=== PATIENT | female | born 1965 | race Caucasian/White ===

== ENCOUNTER 2018-08-04 21:43 | Inpatient (IN) | payer OTHER ==
[~2018-08-04] VITALS: Ht 167.6 cm; Wt 191.8 kg
--- NOTE | ~2018-08-04 | HC ---
[facility] [place] [address] CONSULTATION Name: ASHLEY HERNANDEZ Room #: 222-P ADM IN M.R.#: [id number] Admission: 08/04/18 Attend Phys: Todd Grove MD Discharge: Date of : 65 Report #: [id number] THIS REPORT FOR: //name// CC: Todd Grove [facility] physician/PCP DATE OF SERVICE: 08/10/2018 HISTORY OF PRESENT ILLNESS: The patient is a 53-year-old white female, transferred from [place] with a lung mass. She was having problems with cough, dyspnea on exertion. Noted to have a left upper lobe mass and probable liver mets with elevated liver function tests. She has a history of morbid obesity. She underwent a liver biopsy earlier today. We are seeing her in Rehabilitation Medicine consultation. PAST MEDICAL HISTORY: Includes the morbid obesity, obstructive sleep apnea, diabetes mellitus type 2, COPD, chronic perianal fistula, hypothyroidism. ALLERGIES: CLAVULANIC, AMOXICILLIN, SULFAMETHOXAZOLE, BACTRIM WITH TRIMETHOPRIM. MEDICATIONS: Please see the full medication listing. This includes vitamins, herbals, and supplements. HABITS: Daily smoker, 1.5 packs per day for 40 years. No history of alcohol abuse. PAST SURGICAL HISTORY: Also includes a couple of strokes in 2005 and 2006, anal fissure repair. FAMILY HISTORY: Includes cancer involving the bone with her mother. REVIEW OF SYSTEMS: Complains of some overall swelling of her abdominal area. No current chest pain, shortness of breath, focal extremity pain complaints. PHYSICAL EXAMINATION: GENERAL: A 53-year-old morbidly obese, white female, in no obvious distress. She is 5 feet 6 inches, weight is 422 pounds. HEENT: Facies appeared symmetric. NEUROLOGIC: Functional range of motion of both upper extremities. Strength is grade 4- to 3+/5. DTRs are trace to 1. Lower extremities, no focal calf swelling. Strength is grade 3+ to 4-/5. I did not get her up as she is just back from the liver biopsy. ASSESSMENT: A 53-year-old white female with the following problem list: 1. Lung mass with possible metastasis to liver. She underwent a liver biopsy [address] [address] CONSULTATION Name: ASHLEY HERNANDEZ Room #: 222-P [facility] IN [facility].#: [id number] Admission: 08/04/18 Attend Phys: Todd Grove MD Discharge: Date of : 65 Report #: [id number] today. 2. Bloating/constipation. 3. Morbid obesity. 4. Diabetes mellitus type 2. 5. Obstructive sleep apnea. 6. Medical complex with generalized debilitation. 7. Chronic perianal fistula. PLAN: We will need to see how she does with her therapy reevaluations. She is just back from the liver biopsy. We will be glad to follow up with you as she further medically stabilizes. By: [id number] Elliot Fernandez MD /KWASI
[~2018-08-04 21:43] MED LIST: ACETAMINOPHEN325 M1; ASPIRIN325; LIPITOR20 MG; SYNTHROID200 MCG; VITAMIN D1000 UNI1
--- NOTE | 2018-08-05 00:03 | NUR ---
PT ARRIVED ONTO UNIT INTO ROOM 428 VIA EMS TRANSFERRED FROM [facility]. BED LASTER [employer] RUNNER NOTIFIED OF ARRIVAL. PT ORIENTATED TO ROOM, CALL LGIHT, FALL PRECAUTIONS, ROOM. PT ON 4L O2 VIA N/C AND SOA WITH ACTIVITY. PT A&Ox4, PLEASANT AND COOPERATIVE. WILL CONTINUE TO ASSESS AND MONITOR PT.
[2018-08-05 00:12] VITALS: BP 138/72
[2018-08-05] MEDS ORDERED: ALEVE220 MG PO (01:53)
[2018-08-05] MEDS ORDERED: ANORO ELLIPTA1 EACH INH (01:54)
[2018-08-05] MEDS ORDERED: ASPIRIN325 PO (01:54)
[2018-08-05] MEDS ORDERED: LIPITOR 20 MG T20 M1 PO (01:55)
[2018-08-05] MEDS ORDERED: COLACE100 MG PO (01:56)
[2018-08-05] MEDS ORDERED: BASAGLAR K100 UNIT/1 SUBQ (01:56)
[2018-08-05] MEDS ORDERED: NEXIUM40 MG PO (01:57)
[2018-08-05] MEDS ORDERED: FLONASE 0.05%50 MCG NASAL (01:58)
[2018-08-05] MEDS ORDERED: LEVOTHYROXINE200 MC1 PO (01:59)
[2018-08-05] MEDS ORDERED: CLARITIN10 MG PO (01:59)
[2018-08-05] MEDS ORDERED: METFORMIN HCL500 MG PO (02:02)
[2018-08-05] MEDS ORDERED: TOPROL XL25 MG PO (02:02)
[2018-08-05] MEDS ORDERED: MIRALAX17 GM PO (02:03)
[2018-08-05] MEDS ORDERED: SINGULAIR 10 MG10 M1 PO (02:04)
[2018-08-05] MEDS ORDERED: NOVOLOG100 UNIT/1 SUBQ (02:05)
[2018-08-05] MEDS ORDERED: POTASSIUM PO (02:06)
[2018-08-05] MEDS ORDERED: PRESERVISION A1 EAC2 PO (02:07)
[2018-08-05] MEDS ORDERED: TYLENOL EXTRA500 MG PO (02:09)
[2018-08-05] MEDS ORDERED: VENTOLIN HFA 1818 GM INH (02:10)
[2018-08-05] MEDS ORDERED: VITAMINC500 PO (02:10)
[2018-08-05 03:02] VITALS: BP 117/48
--- NOTE | 2018-08-05 03:30 | NUR ---
PT CURRENTLY RESTING IN BED, CPAP ON WITH 4L O2, EYES CLOSED, CALL LIGHT WITHIN REACH. REPORT GIVEN AND CARE TRANSFERRED TO MICHELE MYERS ON UNIT. PT WILL CONTINUE TO BE MONITORED.
[2018-08-05 05:06] LABS: HEMATOCRIT 39.4 % (37.0-47.0); HEMOGLOBIN 12.9 gm/dL (12.0-15.0); MCH 29.4 pg (26.0-34.0); MCHC 32.8 g/dL (28.0-37.0); MCV 89.5 fL (80.0-100.0); RBC 4.41 mil/uL (4.20-5.00); WBC 12.9 thou/uL (4.0-11.0)
[2018-08-05 05:20] LABS: ALBUMIN 2.6 g/dL (3.4-5.0); CALCIUM 8.7 mg/dL (8.5-10.1); CREATININE 0.7 mg/dL (0.6-1.0); MAGNESIUM 2.3 mg/dL (1.8-2.4); TOTAL BILIRUBIN 2.9 mg/dL (<0.1-1.0)
[2018-08-05 05:31] LABS: POTASSIUM 4.8 mmol/L (3.5-5.1)
[2018-08-05 07:40] VITALS: BP 114/53
[2018-08-05] MEDS ORDERED: ZPAK PO (09:21)
[2018-08-05] MEDS ORDERED: TRIAMCINOLONE A80 G2 TOP (09:22)
[2018-08-05] MEDS ORDERED: ZANTAC 150MG T150 MG PO (09:22)
--- NOTE | 2018-08-05 12:28 | NUR ---
ASSESSMENT-PT LIVES IN A MOBILE HOME WITH HER SISTER. PT USES A C-PAP AT HOME. PT SAYS SHE WALKS ON HER OWN AND DOES HER OWN ADLS. PT HAS HER MOM AND SISTER FOR SUPPORT. PT VOICES NO DC NEEDS AT THIS TIME. FOLLOWING TO ASSSIST WITH DC PLANNING.
--- NOTE | 2018-08-05 13:45 | NUR ---
Assess due to pt with high BMI 69.2=extreme class III obesity. Admit with noted lung mass, possible liver mets. Hx tobacco use, dm, cva, SRAVANI. BG 167 and A1C pending. Pt currently npo for procedure. No dietary questions. Recommend resume carb controlled diet when medically appropriate. Low nutrition risk
[2018-08-05 20:27] VITALS: BP 147/82
--- NOTE | 2018-08-05 20:50 | NUR ---
ASSUMED PT CARE AT 0700H. PT HAS NO S/S OF DISTRESS. PT A&O X4. PT ON NASAL 4L. PT TOLERATED MED. PT HAS A FIRM ABD. PT CONCERN OF BEING CONSTIPATED. PT STATES HAVING A IRRITABLE BOWEL WITH PEBBLE STOOLS. PT'S FAMILY (WALTER) AT BEDSIDE STATES PT HAS BILATERAL FISTULA AND HEMORRIDS THAT CAUSE BLOODY STOOLS. PT CURRENTLY IN BED AND CALL LIGHT WITHIN REACH. PT CONTINUES BEING MONITORED FOR SAFETY.
[2018-08-05 20:52] LABS: HCO3 27.4 mmol/L (22.0-26.0); PCO2 41.3 mmHg (35.0-45.0); sO2 96.7 % (92.0-98.0)
[2018-08-06 00:11] LABS: GLYCOHEMOGLOBIN (HGB A1C) 6.9 % (4.8-5.6)
[2018-08-06 00:22] LABS: HEMATOCRIT 40.7 % (37.0-47.0); HEMOGLOBIN 13.6 gm/dL (12.0-15.0); MCH 29.7 pg (26.0-34.0); MCHC 33.4 g/dL (28.0-37.0); MCV 88.9 fL (80.0-100.0); PLATELET COUNT 266 thou/uL (150-400); RBC 4.58 mil/uL (4.20-5.00); RDW 15.5 % (10.5-14.5); WBC 15.9 thou/uL (4.0-11.0)
[2018-08-06 00:47] LABS: ALBUMIN 2.8 g/dL (3.4-5.0); CALCIUM 8.9 mg/dL (8.5-10.1); CREATININE 0.8 mg/dL (0.6-1.0); POTASSIUM 4.5 mmol/L (3.5-5.1); TOTAL BILIRUBIN 2.4 mg/dL (<0.1-1.0); TOTAL PROTEIN 6.5 g/dL (6.4-8.2)
[2018-08-06 01:13] LABS: ABSOLUTE NEUTROPHILS 12.6 thou/uL (1.4-8.2); ATYPICAL LYMPHS 2 %; METAMYELOCYTES 1 %
[2018-08-06 01:14] LABS: LARGE PLATELETS RARE
[2018-08-06 05:03] VITALS: BP 128/60
--- NOTE | 2018-08-06 07:45 | NUR ---
ASSUMED PT CARE 1899. PT ALERT AND ORIENTED. IV DRESSINGS D/I. NO SIGNS OF INFILTRATION. PT COMPLAINS OF ABDOMINAL DISCOMFORT, REPORTS LIQUID BLOODY STOOLS. OXYGEN 4L VIA NC. VSS. APPNEA MONITIOR PRESENT. PT ANXIOUS CONCERNING ISSUES WITH BLOODY STOOLS. PT ON BIPAP AT NIGHT. PT SLEPT WELL THROUGH THE EVENING.
[2018-08-06 16:00] VITALS: BP 146/76
--- NOTE | 2018-08-07 03:10 | NUR ---
PATIENT ALERT AND ORIENTED X4. GETS UP TO BATHROOM BY SELF, NEEDS HELP WITH THE WIPING. ACCUCHECK WAS 224, RECIEVED 4UNITS INSULIN. LUIS LOWER EXT EDEMA. ALL EXT HAS A RASH. BY THE TIME THE MEDICINE FOR THE RASH ARRIVED THE PATIENT DID NOT WANT THE MED ON. BIBAP ON AT HS. SLEPT MOST OF NIGHT.
[2018-08-07 06:10] LABS: HEMOGLOBIN 12.9 gm/dL (12.0-15.0); MCH 28.9 pg (26.0-34.0); MCHC 32.4 g/dL (28.0-37.0); MCV 89.1 fL (80.0-100.0); PLATELET COUNT 233 thou/uL (150-400); RBC 4.48 mil/uL (4.20-5.00)
[2018-08-07 06:23] LABS: ALBUMIN 2.6 g/dL (3.4-5.0); CALCIUM 8.8 mg/dL (8.5-10.1); CREATININE 0.8 mg/dL (0.6-1.0); MAGNESIUM 2.7 mg/dL (1.8-2.4); POTASSIUM 4.6 mmol/L (3.5-5.1); TOTAL BILIRUBIN 2.3 mg/dL (<0.1-1.0); TOTAL PROTEIN 6.1 g/dL (6.4-8.2)
[2018-08-07 08:44] LABS: ABSOLUTE NEUTROPHILS 11.2 thou/uL (1.4-8.2); PLATELET ESTIMATE NORMAL
[2018-08-07 08:45] VITALS: BP 154/82
--- NOTE | 2018-08-07 09:46 | NUR ---
ASSUMED PT CARE AT 0700. PT SITTING ON SIDE OF BED IN NO APPARENT DISTRESS. AWAKE,ALERT/ORIENTED X4. PT REPORTS PAIN TO ABDOMEN AND BACK RATED 7/10. TYLENOL GIVEN. ASSESSMENT IS CHARTED AND VITAL SIGNS STABLE. PT WOULD LIKE SOMETHING FOR HER RASH THAT IS MORE OF A CREAM/LOTION. WILL REQUEST SOMETHING DIFFERENT. OTHERWISE NO NEW CONCERNS AT THIS TIME. WILL CONTINUE WITH CURRENT CARE.
--- NOTE | 2018-08-07 15:05 | NUR ---
PT HAD LARGE BLOODY STOOL THIS AFTERNOON. PT REPORTS THIS HAS BEEN GOING ON SINCE EARLY JUNE WHEN SHE FELL ON STAIRS AT HOME. PHYSICIAN NOTIFIED.
[2018-08-07 15:23] LABS: HEMATOCRIT 40.2 % (37.0-47.0); HEMOGLOBIN 13.2 gm/dL (12.0-15.0); MCH 29.3 pg (26.0-34.0); MCHC 32.9 g/dL (28.0-37.0); RBC 4.52 mil/uL (4.20-5.00); RDW 15.5 % (10.5-14.5); WBC 17.2 thou/uL (4.0-11.0)
--- NOTE | 2018-08-07 16:26 | HC ---
[facility] [place] [address] CONSULTATION Name: ASHLEY HERNANDEZ Room #: 221-P ADM IN M.R.#: [id number] Admission: 08/04/18 Attend Phys: Todd Grove MD Discharge: Date of : 65 Report #: [id number] THIS REPORT FOR: //name// CC: Todd Grove [facility] physician/PCP DATE OF SERVICE: 08/05/2018 TYPE OF REPORT: Pulmonary consultation. REFERRING PHYSICIAN: Todd Grove M.D. REASON FOR REFERRAL: Lung mass. HISTORY OF PRESENT ILLNESS: The patient is a 53-year-old white female who was transferred from [facility] due to an abnormal chest CT. A Pulmonary consultation was requested. The patient complaints of abdominal bloating for the past 2-3 weeks. With worsening symptoms along with dyspnea, the patient presented to the Emergency Room. A CT chest angiogram was performed at [facility]. The CT chest was said to have shown a left upper lobe lung mass. Unfortunately, I do not have the CT for review. The patient is a lifetime smoker. She continues to smoke half a pack a day. Otherwise, denies any recent nausea, vomiting or diarrhea. She denies any recent weight loss. Preliminary report from the CT chest shows 8.2 x 6 x 4.5 cm irregular left upper lobe lung mass extending into the hilar region with mediastinal and hilar adenopathy. CT abdomen and pelvis shows hepatomegaly with a metastatic disease. Retroperitoneal adenopathy was also noted consistent with metastatic disease. Vwtff-bj-[id number] pleural effusion is also seen. 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 PAST SURGICAL HISTORY: Notable for appendectomy, cholecystectomy and anal fissure repair. ALLERGIES: To AUGMENTIN, which causes hives and BACTRIM, causes yeast infection. She is allergic to both SULFAMETHOXAZOLE along with TRIMETHOPRIM. [facility] [address] [place] [address] CONSULTATION Name: MARYASHLEY Room #: 221-P [facility] IN ..#: [id number] Admission: 08/04/18 Attend Phys: Todd Grove MD Discharge: Date of : 65 Report #: [id number] HOME MEDICATIONS: Include Aleve, Lipitor, Colace, Nexium, levothyroxine, MiraLax, insulin supplements, Tylenol, azithromycin, Zantac, Anoro Ellipta, aspirin, insulin supplements, Flonase, Claritin, Glucophage, Toprol, Singulair, Ventolin HFA and vitamin C supplements. FAMILY HISTORY: Noncontributory. SOCIAL HISTORY: She continues to smoke about 1-1/2 packs a day. She denies any alcohol use. She has smoked for more than 40 years. REVIEW OF SYSTEMS: As mentioned above, otherwise 10-point system review negative. PHYSICAL EXAMINATION: GENERAL: She is awake, alert, in mild distress due to dyspnea along with abdominal discomfort. VITAL SIGNS: Temperature is 97.4 degrees Fahrenheit, pulse is 85, respiratory rate is 20, blood pressure 138/72 mmHg and saturation 92%. HEENT: Normocephalic and atraumatic. NECK: Supple without any lymphadenopathy or thyromegaly. CHEST: Breath sounds are distant. Mild expiratory wheezes. CARDIOVASCULAR: Heart sounds are distant. No murmurs or gallop. Pulses are 2+/4+ bilaterally. BREASTS: Exam is deferred. ABDOMEN: Obese, soft and mildly tender in the lower abdomen area without obvious mass or rebound tenderness. GENITOURINARY: Deferred. RECTAL: Deferred. EXTREMITIES: No cyanosis or clubbing, 1-2+ bilateral edema is noted. NEUROLOGICAL: She is awake and alert. RADIOLOGICAL DATA: Official report of the CT chest is pending. LABORATORY DATA: Electrolytes are normal. Creatinine 0.8. Liver enzymes are moderately elevated with SGOT 247, SGPT 139 and alkaline phosphatase is 670. WBC 12,900; hemoglobin 12.9 and platelets are normal. Albumin 2.6. Arterial blood gas revealed pH 7.44, pCO2 of 41 and pO2 of 85 on 4 liters of O2. IMPRESSION: 1. History of left upper lobe lung mass in this 53-year-old white female. Unfortunately, I do not have a CT chest for review. A CT abdomen also suggests metastasis to the liver. We will await the copy of the chest CT report along with chest CT for review for further recommendation and evaluation. 2. Abdominal discomfort. The patient complains of bloating. May be related to obstipation. We will await further evaluation. 3. History of chronic obstructive pulmonary disease, ongoing tobacco use. [facility] [address] [place] [address] CONSULTATION Name: ASHLEY HERNANDEZ Room #: 221-P [facility] IN [facility].#: [id number] Admission: 08/04/18 Attend Phys: Todd Grove MD Discharge: Date of : 65 Report #: [id number] Severity unknown. Continue bronchodilators and inhaled corticosteroids. 4. Obstructive sleep apnea, on continuous positive airway pressure. 5. Morbid obesity. 6. Elevated liver enzymes, etiology is unclear. Not sure if it is entirely related to metastatic liver disease. We will need to consider other possible causes such as alcohol use, hepatitis, etc. 7. Diabetes mellitus type 2. 8. Hypertension. 9. Hypothyroidism. 10. Elevated lipase. RECOMMENDATIONS: We will await CT chest result along with a CT chest for review. Continue bronchodilators and steroids for COPD. Continue CPAP for sleep apnea. We will also recommend a GI workup regarding abdominal complaints. Once GI status is stable, we will proceed with a pulmonary workup. If the patient is stable, pulmonary workup can be accomplished as an outpatient. DVT and GI prophylaxis is recommended. Thank you for this consultation. <ELECTRONICALLY SIGNED> By: Judd Liang MD 08/07/18 1626 [id number] Judd Liang MD /nt
--- NOTE | 2018-08-07 17:06 | NUR ---
PT DECLINED TO BE DISMISSED TODAY. PT CONCERNED THE EDEMA IN HER LEGS AND ABDOMEN HAVE NOT BEEN ADDRESSED. PT REPORTS PAIN AND MUCH DISCOMFORT IN HER ABDOMEN FROM THE SWELLING MAKING DAILY ACTIVITIES DIFFICULT. TYLENOL GIVEN FOR PAIN. OTHERWISE NO NEW CONCERNS. PT WAS SEEN BY GI FOR BLOOD IN STOOLS. NO NEW ORDERS WERE ENTERED. WILL CONTINUE TO MONITOR.
[2018-08-07 19:47] VITALS: BP 133/67
--- NOTE | 2018-08-08 02:43 | NUR ---
ASSUMED CARE OF PATIENT AT 1899. VSS. ASSESSMENT COMPLETED AT 2119 AND IS DOCUMENTED. PT C/O ABD DISCOMFORT/INDIGESTION. ORDER RECEIVED FROM MICHAEL JONES FOR TUMS 500MG TID PRN AT 2227. TUMS GIVEN WITH DESIRED EFFECT ACHIEVED. PT UP TO BSC SEVERAL TIMES THROUGHOUT THE NIGHT WITH BLOODY STOOLS EACH TIME. TOPICAL NYSTATIN AND INTERDRY APPLIED TO BILAT ABD FOLDS. SOA WITH EXERTION NOTED. +4 PITTING EDEMA BLE. RIGHT AC PIV PATENT, BUT PUMP ALARMING HIGH PRESSURE REGULARLY. LEFT FA PIV PLACED AND IV ABT INFUSED WITHOUT COMPLICATION. PT CURRENTLY ON CPAP WITH O2 SAT @ 98%. PT CURRENTLY SLEEPING SOUNDLY IN BED IN NO ACUTE DISTRESS. ABLE TO CALL OUT APPROPRIATELY. CALL LIGHT WITHIN REACH. BED LOCKED AND IN LOWEST POSITION. WCTM.
[2018-08-08 06:46] LABS: HEMATOCRIT 39.3 % (37.0-47.0); HEMOGLOBIN 12.8 gm/dL (12.0-15.0); MCH 28.9 pg (26.0-34.0); MCHC 32.6 g/dL (28.0-37.0); MCV 88.6 fL (80.0-100.0); RBC 4.44 mil/uL (4.20-5.00); WBC 14.1 thou/uL (4.0-11.0)
[2018-08-08 06:57] LABS: CALCIUM 8.8 mg/dL (8.5-10.1); CREATININE 0.8 mg/dL (0.6-1.0); POTASSIUM 4.5 mmol/L (3.5-5.1)
[2018-08-08 08:00] VITALS: BP 138/87
--- NOTE | 2018-08-08 17:24 | NUR ---
ASSUMED CARE OF PATIENT AT 0715, PATIENT ALERT AND ORIENTED X 4. PATIENT UP AD JOSE F TO BATHROOM, NEEDS ASSISTANCE TO CLEAN AFTER USING THE BATHROOM. PATIENT C/O PAIN WITH ABDOMEN AREA AND HEADACHE THIS AM. PATIENT GIVEN TYLENOL 650 MG PER PATIENT REQUEST, PARTIAL RELIEF REPORTED. PATIENT HAS RASH OVER BODY, TRIAMCINOLONE CREAM APPLIED TO AFFECTED AREAS. PATIENT CONTINUES TO HAVE REDNESS UNDER ABDOMEN FOLDS, NYSTATIN APPLIED AFTER WASHING AREA AND DRYING THE AREA. NO BLOOD NOTED IN STOOLS THIS SHIFT. PATIENT HAS LEFT FOREARM IV IN PLACE, FLUSHED WITH NS AND REMAINS PATENT, RECEIVED 1 IV ANTIBIOTIC THIS SHIFT. WILL CONTINUE TO MONITOR.
[2018-08-08 19:26] VITALS: BP 164/73
--- NOTE | 2018-08-09 03:20 | NUR ---
ASSUMED CARE OF PATIENT AT 1900. VSS. ASSESSMENT COMPLETED AT 2016 AND IS DOCUMENTED. PT CONTINUES TO CRY OUT PAIN FROM ABD. PRN TYLENOL GIVEN WITH SOME EFFECT. PRN TUMS GIVEN FOR C/O INDEGESTION WITH DESIRED EFFECT ACHIEVED. PT STILL HAS +4 PITTING EDEMA IN BLE. PT BROUGHT COMPRESSION STOCKINGS FROM HOME AND THOSE WERE APPLIED. BRIGHT RED BLOOD NOTED WITH BM X2. LEFT FA PIV PATENT AND SALINE LOCKED. IV ABT INFUSED WITHOUT COMPLICATION. PT VOICED CONCERN THAT SHE WAS RETAINING WATER WEIGHT AND THAT SHE WAS NOT GETTING ENOUGH LASIX TO GET RID OF THE EXTRA. THIS NURSE ASSURED PT THAT HER CONCERNS WOULD BE PASSED ONTO HER DOCTOR. PT STILL SOA WITH EXERTION. WEARS CPAP AT NIGHT. PT ABLE TO CALL OUT APPROPRIATELY. PT CURRENTLY SLEEPING IN BED IN NO ACUTE DISTRESS. CALL LIGHT WITHIN REACH. BED LOCKED AND IN LOWEST POSITION. WCTM.
[2018-08-09 07:44] LABS: HEMATOCRIT 42.1 % (37.0-47.0); HEMOGLOBIN 13.6 gm/dL (12.0-15.0); MCH 28.8 pg (26.0-34.0); MCHC 32.3 g/dL (28.0-37.0); MCV 89.2 fL (80.0-100.0); RBC 4.72 mil/uL (4.20-5.00); RDW 16.2 % (10.5-14.5); WBC 15.7 thou/uL (4.0-11.0)
[2018-08-09 08:06] VITALS: BP 139/69
[2018-08-09 09:11] LABS: ALBUMIN 2.8 g/dL (3.4-5.0); CALCIUM 9.1 mg/dL (8.5-10.1); CREATININE 0.7 mg/dL (0.6-1.0); TOTAL BILIRUBIN 3.8 mg/dL (<0.1-1.0); TOTAL PROTEIN 6.5 g/dL (6.4-8.2)
[2018-08-09 09:20] LABS: POTASSIUM 5.1 mmol/L (3.5-5.1)
--- NOTE | 2018-08-09 11:10 | NUR ---
ASSUMED CARE OF PATIENT THIS MORNING. PATIENT IS ALERT AND ORIENTED X 4. SHE IS UP AD JOSE F. PATIENT RECEIVED Q4H BREATHING TREATMENTS. SHE WEARS A CPAP AT NIGHT. SHE IS AN ACCUCHECK AC/HS. HER IV IS IN HER L. FOREARM. SHE HAS ABDOMINAL SWELLING. BILATERAL LOWER EXTREMITY EDEMA. SHE HAS ERYTHEMA SPOTS THROUGHOUT HER BODY. PATIENT HAS AN ANAL FISSURE THAT CAUSES BLEEDING AT TIMES. SHE WAS ASSESSED THIS MORNING, NO ABNORMAL FINDINGS EXCEPT THE EDEMA WHICH IS GENERALIZED. LAST BOWEL MOVEMENT WAS THE MORNING, VOIDS PER BEDSIDE COMMODE. SHE IS CURRENTLY SITTING ON THE SIDE OF BED. CALL LIGHT WITHIN REACH, PATIENT CALLS OUT APPROPRIATELY.
[2018-08-09 19:33] VITALS: BP 152/89
[2018-08-10] VITALS (8 sets, daily range): BP systolic 122–159; BP diastolic 62–88
--- NOTE | 2018-08-10 02:35 | NUR ---
ASSUMED CARE OF PATIENT AT 1900. VSS. ASSESSMENT COMPLETED AT 2030 AND IS DOCUMENTED. UNABLE TO FLUSH LEFT FA PIV AND WAS D/C-ED. PPAP COORDINATOR INSERTED A PIV INTO RIGHT CHEST. DURING INFUSION OF IV ABT, PT C/O BURNING, AND AREA BECAME SWOLLEN AND COOL TO TOUCH. INFUSION STOPPED AND IV D/C. CECILY, MEDIA OPERATOR NOTIFIED. ORDER FOR IV THERAPY OBTAINED. ALSO ADVISED THAT PT SHOULD BE NPO AFTER MIDNIGHT D/T IR TRANSJUGULAR LIVER BIOPSY SCHEDULED FOR 08/10. CONSENT HAS NOT BEEN SIGNED AT THIS TIME. WILL NOTIFY ONCOMING NURSE. PT NPO 08/09 @ 9140. PT CONTINUES TO NEED ASSISTANCE WIPING AFTER TOILETING. BRIGHT RED BLOOD NOTED EACH TIME. PT CURRENTLY SLEEPING SOUNDLY IN BED WITH CPAP AND CONTINUOUS PULSE OX. NO ACUTE DISTRESS NOTED OR REPORTED. ABLE TO CALL OUT APPROPRIATELY. CALL LIGHT WITHIN REACH. BED LOCKED AND IN LOWEST POSITION. WCTM.
[2018-08-10 06:31] LABS: HEMATOCRIT 42.9 % (37.0-47.0); MCH 29.2 pg (26.0-34.0); MCHC 32.6 g/dL (28.0-37.0); MCV 89.7 fL (80.0-100.0); RBC 4.78 mil/uL (4.20-5.00); RDW 15.9 % (10.5-14.5); WBC 18.1 thou/uL (4.0-11.0)
[2018-08-10 06:44] LABS: INR 1.5; PROTIME 16.1 Seconds (9.3-11.4)
[2018-08-10 06:46] LABS: ALBUMIN 2.8 g/dL (3.4-5.0); CALCIUM 9.3 mg/dL (8.5-10.1); CREATININE 0.9 mg/dL (0.6-1.0); POTASSIUM 4.9 mmol/L (3.5-5.1); TOTAL PROTEIN 6.9 g/dL (6.4-8.2)
--- NOTE | 2018-08-10 09:55 | NUR ---
SW reviewed chart and spoke with nursing. Pt transferred to [facility] and is progressing towards goals for discharge. Pt to have liver bx today. Plan is for pt to d/c home when medically stable. SW is following to assist as needed with discharge planning.
--- NOTE | 2018-08-10 12:15 | NUR ---
ASSUMED CARE OF PATIENT THIS MORNING. PATIENT IS ALERT AND ORIENTED X4. SHE IS UP AD JOSE F. PATIENT COMPLAINS OF STOMACH DISCOMFORT, "FEELS LIKE GAS". SHE WAS ASSESSED THIS MORNING, LUNG SOUNDS WERE CLEAR AND SLIGHTLY DIMINISHED. ABDOMEN IS DISTENDED AND FIRM. GENERALIZED EDEMA. BILATERAL LEG EDEMA NON WEEPING. PATIENT GOING TO IR THIS AFTERNOON FOR LIVER BIOPSY. NPO SINCE MIDNIGHT. SLIGHT BLEEDING FROM ANAL AREA WHEN WIPING OR WITH BOWEL MOVEMENTS AT TIMES. ALL MORNING MEDICATIONS WERE HELD UNTIL AFTER PROCEDURE EXPECT BLOOD PRESSURE MEDICATION.
--- NOTE | 2018-08-10 12:39 | NUR ---
PATIENT IS CURRENTLY OFF THE UNIT FOR LIVER BIOPSY. TRANSPORT CAME TO GET PATIENT VIA CART. NO IV POLE NEEDED. CONSENT SIGNED AND SENT WITH THE PATIENT.
--- NOTE | 2018-08-10 16:12 | NUR ---
I AGREE WITH NURSING ASSESSMENT DONE BY QUINTON/MC.
--- NOTE | 2018-08-11 04:09 | NUR ---
PATIENT ALERT AND ORIENTED X4. C/O PAIN, MED GIVEN. ACCUCHECK WAS 151, 3 UNITS LISPRO INSULIN GIVEN. LIVER BX DONE YESTERDAY. PATIENT UP AD JOSE F. PATIENT WEARS C-PAP AT HS. SLEPT OFF AND ON DURING NIGHT.
[2018-08-11 08:10] VITALS: BP 142/75
--- NOTE | 2018-08-11 08:10 | NUR ---
ASSUMED PT CARE AT 0700. ASSESSMENT COMPLETE AT 0810 AND IS CHARTED. VITAL SIGNS STABLE. PT SITTING UP ON EDGE OF BED. AWAKE,ALERT/ORIENTED X4. REPORTS ABDOMINAL PAIN RATED 8/10 AND ALSO REPORTS OFF AND ON BM'S WITH BLOOD IN THEM. . 2+ PITTING EDEMA TO LOWER EXTREMITIES. ABDOMEN REMAINS FIRMS AND DISTENDED. PAIN MEDICATION GIVEN FOR ABD PAIN. WILL CONTINUE WITH CURRENT CARE ORDERED.
--- NOTE | 2018-08-11 13:27 | NUR ---
SW reviewed chart and spoke with nursing and attending physician. Pt had liver bx yesterday-results pending. PT/OT to re-evaluate pt for recommendation for discharge. 5N consult ordered. Pt would benefit from post-acute stay prior to returning home. Awaiting input from 5N at this time. EDGAR is following to assist as needed with discharge planning.
--- NOTE | 2018-08-11 13:41 | NUR ---
PT DOING FAIR THIS SHIFT. TOLERATING BEING UP IN ROOM AD JOSE F, BUT DID NOT TOLERATE PHYSICAL THERAPY WELL. BECAME VERY SHORT OF BREATH. PHYSICAL THERAPIST REPORTS SAT DID NOT DROP DURING THIS TIME. PT HAS BEEN RESTING IN CHAIR SINCE THEN. CONTINUING TO GIVE OXYCODONE FOR ABD PAIN. OT IN ROOM AT THIS TIME. WILL CONTINUE TO MONITOR.
[2018-08-11 20:57] VITALS: BP 147/78
--- NOTE | 2018-08-12 04:42 | NUR ---
PATIENT ALERT AND ORIENTED X4. UP TO BATHROOM BYSELF BUT NEEDS HELP WIPING. THERE IS BLOOD IN THE STOOL AND PAPER. C/O PAIN X1, MED GIVEN. BLOOD SUGAR WAS 186, 3 UNITS LISPRO INSULIN GIVEN. CREAM APPLIED TO PATIENT'S EXT. SLEPT MOST OF NIGHT.
[2018-08-12 07:49] VITALS: BP 157/81
--- NOTE | 2018-08-12 10:24 | NUR ---
Followup: suspected lung cancer with possible mets, pending liver bx results. Extreme class III obesity, BMI 68. On carb controlled diet, fair to good intake-early satiety with abdominal distention and firmness. Trying to order most meals from hospital menu. Explained diet order/restrictions. Low nutrition risk
--- NOTE | 2018-08-12 11:12 | HC ---
[facility] [place] [address] CONSULTATION Name: ASHLEY HERNANDEZ Room #: 222-P ADM IN M.R.#: [id number] Admission: 08/04/18 Attend Phys: Todd Grove MD Discharge: Date of : 65 Report #: [id number] THIS REPORT FOR: //name// CC: Todd Collazo [facility] physician/PCP Judd Liang MD DATE OF SERVICE: 08/07/2018 HISTORY OF PRESENT ILLNESS: The patient is a 53-year-old female who was evaluated at [facility] for abdominal pain, constipation as well as dyspnea on exertion. A CT scan of the abdomen and pelvis as well as a chest were performed on 08/04/2018. CT of the chest showed an 8.2 x 6.0 x 4.5 large irregular mass centered in the left upper lobe extending in the hilar region with mediastinal and hilar adenopathy. Findings are most consistent with primary bronchogenic carcinoma with metastatic mediastinal adenopathy. Consolidating infiltrate and reactive adenopathy is considered unlikely. The patient has a long history of smoking. No previous history of cancer. CT of the abdomen, exam is markedly limited due to the patient's large body habitus resulting in beam hardening effect. Hepatomegaly with multiple ill-defined low density foci within the liver consistent with hepatic metastatic disease, retroperitoneal adenopathy consistent with metastatic adenopathy, pyigq-bn-ebyfsofa amount of ascites, limited visualization of the pancreas secondary to beam hardening artifact. Dr. Liang is following since transfer as well as Dr. Ernandez, Dr. Collazo. Plan is for biopsy in the near future for further evaluation of possible metastatic disease. Reason for GI consultation at this time is bright red blood per rectum. The patient states she had a fall at home a couple of weeks ago and after that, began having some bleeding with bowel movements, not with every bowel movement. Currently is happening every few days. She does complain of some pain around the sacrum. She states that she had seen a chiropractor after the fall. She reportedly has a history of anal fissure. No previous history of colonoscopy. No family history of colon cancer. She said she has had several large bowel movements, but denies any significant history of constipation. She denies any diarrhea. She is currently given ointment for her skin and at one point was using a suppository, but denies any significant benefit. She does complain of abdominal bloating and pain in general. She is short of breath with minimal exertion. Also noted was an elevated lipase. The patient denies any history of pancreatitis. She has had a previous cholecystectomy years ago. She denies any significant history of alcohol use. Currently is denying any chest pain. No fevers or chills. The patient here has had an ultrasound of the abdomen, which shows hepatomegaly and probable multiple hepatic masses measuring up to 9 cm. Mild splenomegaly. The pancreas and aorta were not well visualized. Trace ascites was noted. Chest x-ray: Atelectasis and pneumonia on the left upper [facility] [address] [place] [address] CONSULTATION Name: ASHLEY HERNANDEZ Room #: 222-P [facility] IN ..#: [id number] Admission: 08/04/18 Attend Phys: Todd Grove MD Discharge: Date of : 65 Report #: [id number] lung. No evidence of gross congestive failure. PAST MEDICAL HISTORY: Morbid obesity. Recent CT showing evidence of likely metastatic disease as described above. No biopsies have been obtained as yet. History of hypertension, diabetes, hypothyroidism, cerebral vasculitis, retinal problems, previous cholecystectomy, appendectomy, apparently history of CVAs in 2005 and 2006, history of anal fissure. MEDICATIONS ON ADMISSION: Aleve, Lipitor, Colace, Nexium, MiraLax, NovoLog, Tylenol p.r.n., Z-MARCO, Aristocort, Zantac, aspirin, Flonase, Claritin, Glucophage, Toprol, Singulair, Ventolin and vitamin C. REVIEW OF SYSTEMS: As per HPI. FAMILY HISTORY: Negative for colon cancer or inflammatory bowel disease. SOCIAL HISTORY: A long history of smoking 1-1/2 packs per day. She denies any significant alcohol use. ALLERGIES: AUGMENTIN AND BACTRIM. PHYSICAL EXAMINATION: VITAL SIGNS: Temperature is 97.6, pulse 85, blood pressure 154/82, respiratory rate is 20. GENERAL: She is alert and oriented x 3. She does appear to have some respiratory distress and difficulty with movement. HEENT: Sclerae nonicteric. Oropharynx is clear. NECK: Supple. CARDIOVASCULAR: Regular rate. CHEST: With decreased breath sounds bilaterally. ABDOMEN: Morbidly obese, soft, mildly distended, mildly tender diffusely. Rectal exam was performed. I did not see an obvious anal fissure. The patient is tender in the perirectal area. There is no evidence of fluctuance or abscess type of formation. She was again tender on exam and there is some skin erythema. No obvious fissure or hemorrhoid was seen. EXTREMITIES: Trace edema in the lower extremities bilaterally. LABORATORY DATA: Sodium 140, potassium 4.6, chloride 102, bicarbonate 29, BUN 18, creatinine 0.8, glucose 152, AST is 229, lipase 1436, total bilirubin 2.3, magnesium 2.7, alkaline phosphatase 706, ALT 137, total protein 6.1, albumin 2.6, lactic acid level yesterday is 2.1. WBC is 17.2, hemoglobin 13.2, platelet count is 277. ASSESSMENT AND PLAN: 1. Intermittent bright red blood per rectum. Currently, hemoglobin is normal at 13. The patient has never had a colonoscopy. On digital exam today, she is [facility] [address] [place] [address] CONSULTATION Name: ASHLEY HERNANDEZ Room #: 222-P ADM IN [facility].#: [id number] Admission: 08/04/18 Attend Phys: Todd Grove MD Discharge: Date of : 65 Report #: [id number] tender in the perianal region, but no obvious abscess seen as well as fissure. I suspect she may have a fissure or hemorrhoid. However, the skin is mildly irritated in the perirectal area. The patient is high risk at this time because of multiple medical problems including lung masses and morbid obesity for colonoscopy and sedation. Therefore, would recommend treating with Analpram t.i.d. and continue to monitor the patient's bleeding as well as hemoglobin. 2. Elevated liver function tests, suspect this is secondary to multiple masses within the liver from metastatic disease. Plan for biopsy in the near future. 3. Elevated lipase, difficult to determine if this reflects possible pancreatitis, may be elevated for other reasons. The patient does complain of abdominal pain, but this had been ongoing for some time and diffuse. The pancreas that was visualized on CT at [facility] was limited, but did not show any obvious abnormalities. The common bile duct on ultrasound recently was negative making a common bile duct stone much less likely. Also, the patient has had a previous cholecystectomy. We will continue to follow. Thank you for allowing me to participate in her care. <ELECTRONICALLY SIGNED> By: Josiah Tejada MD 08/12/18 1112 1622 [id number] Josiah Tejada MD /nt
--- NOTE | 2018-08-12 14:22 | 2DMMODE ---
[facility] [address] [place] [address] 2 D/M-MODE ECHOCARDIOGRAM Name: ASHLEY HERNANDEZ Room #: 222-P ADM IN M.R.#: [id number] Admission: 08/04/18 Attend Phys: Todd Grove MD Discharge: Date of : 65 Date of Service: 08/12/18 1422 Report #: [id number] THIS REPORT FOR: //name// APPROVED REPORT Study performed: 08/12/2018 12:40:24 EXAM: Comprehensive 2D, Doppler, and color-flow Echocardiogram Patient Location: Bedside Room #: 222 Status: routine BSA: 2.75 HR: 84 bpm BP: 157/81 mmHg Rhythm: NSR/arrhythmia Other Information Study Quality: Fair Technically limited study due to morbid obesity. Echo Enhancing Agent Indication: Endocardial border delineation Agent(s) / Amount(s) Used: Optison 4 cc 2D Dimensions RVDd: 38.48 mm IVSd: 14.21 (7-11mm) LVOT Diam: 19.71 (18-24mm) LVDd: 38.95 mm PWd: 11.11 (7-11mm) Ascending Ao: 31.36 (22-36mm) LVDs: 24.34 (25-40mm) Aortic Root: 29.67 mm Volumes Left Atrial Volume (Systole) Single Plane 4CH: 43.27 mL Single Plane 2CH: 61.46 mL LA ESV Index: 21.00 mL/m2 Aortic Valve AoV Peak Gerald.: 2.28 m/s AO Peak Gr.: 20.74 mmHg LVOT Max P.46 mmHg LVOT Max V: 1.62 m/s GASTON Vmax: 2.17 cm2 Mitral Valve E/A Ratio: 0.8 [facility] [place] [address] 2 D/M-MODE ECHOCARDIOGRAM Name: ASHLEY HERNANDEZ Room #: 222-P [facility] IN M.R.#: [id number] Admission: 08/04/18 Attend Phys: Todd Grove MD Discharge: Date of : 65 Date of Service: 08/12/18 1422 Report #: [id number] MV Decel. Time: 429.85 ms MV E Max Gerald.: 0.86 m/s MV A Gerald.: 1.05 m/s MV PHT: 124.66 ms IVRT: 76.12 ms Pulmonary Valve PV Peak Gerald.: 1.53 m/s PV Peak Gr.: 9.34 mmHg Pulmonary Vein P Vein S: 0.70 m/s P Vein A: 0.33 m/s P Vein D: 0.40 m/s P Vein A Dur.: 143.0 msec P Vein S/D Ratio: 1.75 Left Ventricle The left ventricle is normal size. There is normal LV segmental wall motion. Mild concentric left ventricular hypertrophy. Left ventricular systolic function is normal. LVEF is 65%. Mild diastolic dysfunction is present (impaired relaxation pattern). Right Ventricle Right ventricle is not well visualized. Atria The left atrium size is normal. The right atrium size is normal. Aortic Valve Aortic valve is mildly calcified. No aortic regurgitation is present. There is no aortic valvular stenosis. Mitral Valve The mitral valve is normal in structure. There is no mitral valve regurgitation noted. No evidence of mitral valve stenosis. Tricuspid Valve Tricuspid valve is not well visualized. Unable to assess PA pressure. Pulmonic Valve Pulmonic valve is not well visualized. Great Vessels The aortic root is normal in size. The ascending aorta is normal in size. IVC [place] [address] 2 D/M-MODE ECHOCARDIOGRAM Name: ASHLEY HERNANDEZ Room #: 222-P [facility] IN ..#: [id number] Admission: 08/04/18 Attend Phys: Todd Grove MD Discharge: Date of : 65 Date of Service: 08/12/18 1422 Report #: [id number] Pericardium There is no pericardial effusion. <Conclusion> The left ventricle is normal size. LVEF is 65%. Right ventricle is not well visualized. Aortic valve is mildly calcified. The mitral valve is normal in structure. Tricuspid valve is not well visualized. Unable to assess PA pressure. Pulmonic valve is not well visualized. There is no pericardial effusion. <ELECTRONICALLY SIGNED> By: Amilcar Hankins MD 08/12/18 142 [id number] 142 Amilcar Hankins MD /INF
--- NOTE | 2018-08-12 15:07 | PATH ---
[facility] [address] [place] [address] PATHOLOGY RPT PROCEDURE Name: MARIA ELENA WINTERS Room #: 222-P ADM IN M.R.#: [id number] Admission: 08/04/18 Date of : 65 Discharge: Report #: [id number] Path Case #: [id number] [facility] Accession Number: [id number] . 01 Material submitted: . LEFT LOBE MASS . 01 Clinical history: . Lung mass, transaminitis, SOA . 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 . (IUV:at;08/12/2018) QTA/08/12/2018 . 02 Comment: Examination shows a high grade/poorly differentiated small blue cell tumor with extensive associated apoptosis as well as necrosis. Immunohistochemical stains are performed on block A1. The tumor shows dot-like perinuclear reactivity with AE1/AE3, as well as Joseph-EP4. The tumor shows strong membranous reactivity with CD56, nuclear reactivity with TTF-1, and granular reactivity with synaptophysin. Rare cells are reactive to chromogranin. P63 as well as CDX-2 are nonreactive. History of lung mass, multiple liver masses is gathered. Overall, findings are compatible with a small cell carcinoma, likely metastatic from the lung. . The preliminary findings of this case are discussed with Dr. Todd Grove at approximately noon on 08/11/18. . Dr. Didi Flower has seen a human resources hr representative H and E slide of this case and concurs with my diagnosis. . (IUV:at;08/12/2018) . 02 Electronically signed: . Rose Hallman MD, Pathologist NPI- [id number] . 01 Gross description: . The specimen is received in formalin, labeled "Maria Elena Winters, liver" and consists of 3 delicate needle cores of saucedo-brown tissue measuring between 2.3 cm and 2.9 cm in length and 0.1 cm each in diameter. They are entirely submitted in A1. (SDY; 08/10/2018) [address] [address] PATHOLOGY RPT PROCEDURE Name: MARIA ELENA WINTERS Room #: 222-P ADM IN M.R.#: [id number] Admission: 08/04/18 Date of : 65 Discharge: Report #: [id number] Path Case #: [id number] SYU/SYU . 02 Pathologist provided ICD-10: C7A.1 . 02 CPT . 566129, D54649, K58792 Specimen Comment: A courtesy copy of this report has been sent to Specimen Comment: [phone]. Specimen Comment: Report sent to Performed at: [address], [place] [id number] MD Erick Madden MD Phone: [phone] Performed at: [address] [id number] MD Rose Hallman MD Phone: [phone]
--- NOTE | 2018-08-12 15:58 | NUR ---
Pt to begin chemo on . D/c to [facility] cancelled for the day.
--- NOTE | 2018-08-12 16:13 | NUR ---
cm reviewed chart: patient is to start chemo. Dr. Grove spoke with Dr. Steele. The patient WILL have 3-doses starting on 08/13/18 while on the in-pt unit. Her last dose will be on 08/15/18. After that last does she can then move to [address] [place] [address] and can be there for several weeks before her next round as an out-patient. CM WILL CONTINUE TO FOLLOW.
[2018-08-12 19:36] VITALS: BP 155/90
--- NOTE | 2018-08-12 19:56 | NUR ---
ASSUMED CARE OF PATIENT AT 0715, PATIENT ALERT AND ORIENTED X 4. UP AD JOSE F TO THE BATHROOM. PATIENT C/O PAIN WITH UPPER BACK, PATIENT RECEIVED OXYCODONE X 2 THIS SHIFT AND TYLENOL 650 MG X1 THIS AM. PATIENT HAS LEFT FOREARM IV IN PLACE, PATIENT RECEIVED 1 ANTIBIOTIC IV THIS SHIFT. PATIENT WAS GOING TO [facility], CANCELLED DUE TO PATIENT WILL START CHEMO THERAPY POSSIBLY TOMORROW. DR FELTON NURSE DEANNA CALLED WITH LAB ORDERS IN AM CBC WITH DIFF, CEA, LDH, AND CMP, ALSO RECEIVED ORDER FOR ALOXI 0.25 MG IV X 1, DEXAMETHASONE 10 MG IV X 1, AND APREPITANT 125 MG IV X 1 PRE MEDS FOR CHEMO, THIS RN NOTIFIED THE PHARMACY OF NEW ORDERS, PHARMACIST WILL CALL DR FELTON FOR CLARIFICATION OF ORDER FOR APREPITANT 125 MG IV. DEANNA ALSO ORDERED CT SCAN OF BRAIN FOR FRIDAY WITH CONTRAST. BLOOD SUGAR MONITORING ORDERED. PATIENT HAS NEW DIAGNOSIS OF LUNG MASS AND LIVER METS, SLIGHTLY TEARFUL TODAY, FAMILY CAME FOR ABOUR 1 HOUR. WILL CONTINUE TO MONITOR.
--- NOTE | 2018-08-13 06:31 | NUR ---
PATIENT ALERT AND ORIENTED X4. C/O PAIN WITH MED GIVEN. SOB WITH ANY EXERTION. BREATHING LABORED WHEN GETTING UP. RASH ON EXT AND BODY IMPROVING. UP TO BATHROOM BY SELF BUT NEEDS ASSISTANCE WITH WIPING. ABD STILL DISTENDED AND FIRM. SLEPT LITTLE THIS SHIFT.
[2018-08-13 06:49] LABS: HEMATOCRIT 43.8 % (37.0-47.0); MCH 28.5 pg (26.0-34.0); MCV 89.1 fL (80.0-100.0); PLATELET COUNT 256 thou/uL (150-400); RBC 4.91 mil/uL (4.20-5.00); RDW 15.6 % (10.5-14.5); WBC 18.8 thou/uL (4.0-11.0)
[2018-08-13 07:11] LABS: ALBUMIN 2.7 g/dL (3.4-5.0); CALCIUM 9.2 mg/dL (8.5-10.1); CREATININE 0.9 mg/dL (0.6-1.0); POTASSIUM 4.5 mmol/L (3.5-5.1); TOTAL BILIRUBIN 5.6 mg/dL (<0.1-1.0); TOTAL PROTEIN 6.6 g/dL (6.4-8.2)
[2018-08-13 07:45] VITALS: BP 128/60
[2018-08-13 08:39] LABS: ABSOLUTE NEUTROPHILS 17.5 thou/uL (1.4-8.2); PLATELET ESTIMATE NORMAL
--- NOTE | 2018-08-13 13:03 | NUR ---
DISCHARGE NOTE: EDGAR reviewed chart and spoke with nursing and attending physician. Pt is medically stable to discharge to [facility] today. EDGAR discussed case with outpatient animal care specialist. Pt will have first dose of chemo today. Pt will return to [facility] and then d/c to [facility]. EDGAR discussed case with rehabilitation services director who confirms plan. Pt will have chemo will on rehab. Pt will need 3 consecutive doses of chemo, which will occur through the weekend. EDGAR met with pt at bedside to discuss discharge plan. Pt is aware and agreeable with dishcarge plan. Pt tearful discussion new cancer dx and pt is nervous about starting chemo. EDGAR is following to assist as needed with discharge plan
[2018-08-13 14:20] VITALS: BP 135/72
--- NOTE | 2018-08-13 16:06 | SPIROMETRY ---
[facility] [place] [address] SPIROMETRY Name: ASHLEY HERNANDEZ Room #: 222-P ADM IN M.R.#: [id number] Admission: 08/04/18 Attend Phys: Todd Grove MD Discharge: Date of : 65 Report #: [id number] THIS REPORT FOR: //name// >> SPIROMETRY: (BTPS) Height: in cm Weight: lbs kg Exam Date: PRE-RX POST-RX PRED BEST %PRED BEST %PRED %CHG FVC LITERS . . . . . . FEV1 LITERS . . . . . . FEV1/FVC % . . . . . . XIZ92-68% L/Sec . . . . . . PEF L/SEC . . . . . . FEF50/FIF50 UNITLESS . . . . . . >> INTERPRETATION/IMPRESSION: CC: Todd MEJIA physician/PCP Spirometry revealed moderately reduced flows. DICTATION ENDS HERE. <ELECTRONICALLY SIGNED> By: Judd Liang MD 08/13/18 1606 Judd Liang MD /nt
--- NOTE | 2018-08-13 16:11 | NUR ---
PT IN THE INFUSION CLINIC FOR HER
--- NOTE | 2018-08-13 16:16 | NUR ---
PATIENT WAS DISCHARGED TO GO TO [address] [place] [address] REHAB UNIT.REPORT WAS GIVEN TO NURSE PATIENT IS CURRENTLY AT THE INFUSION LAB FOR CHEMO.ARANGEMENTS WERE MADE FOR THE PATIENT TO BE TRANSPORTED TO [address] [place] [address].PATIENT'S BELONGINGS AND CPAP MACHINE WAS SENT TO PATIENT'S ROOM 516.PATIENT'S CHART IS WITH PATIENT IN THE INFUSION CLINIC,WILL REQUEST FOR CHART TO COME BACK O [facility].
[2018-08-13 16:25] VITALS: BP 134/73
[2018-08-13 17:20] VITALS: BP 130/74
--- NOTE | 2018-08-13 17:22 | NUR ---
CAME TO THE INFUSION CLINIC TODAY FOR HER FIRST DAY OF CHEMOTHERAPY FOR NEWLY DIAGNOSED SMALL LUNG CELL CANCER. CONFIRMED DOSES AND PLAN WITH DR. FELTON, CASE MANAGEMENT, PHARMACY AND THE PT'S NURSE AND REHAB UNIT. DOSE ADJUSTMENT DONE FOR BOTH CARBOPLAT AND VP16, CALCULATION DONE BY DR. FELTON AND PHARMACY. PERIPHERAL IV IN RIGHT FOREARM PLACED BY VASCULAR ACCESS NURSE ON 08/10 WITH USE OF ULTRASOUND STILL PATENT, FLUSHES EASILY, NO PAIN OR S/S INFILTRATION WITH ALL FLUIDS GIVEN TODAY INCLUDING CHEMOTHERAPY. PREMEDS GIVEN ORDERED FOLLOWED BY CHEMO ORDERED. CHEMO DOSES DOUBLE CHECKED AT BEDSIDE WITH DELFINA WILLARD D. TEACHING DONE (SEE PT NOTE) AND WILL BE REINFORCED WITH PT OVER THE NEXT COUPLE DAYS. ARRANGED WITH REHAB UNIT TO HAVE PT RETURN FOR DAY #2 TOMORROW AT 1230 FOR VP16. PT VERBALIZES UNDERSTANDING OF PLAN. [employer] CART ORDERED FOR PT'S NEW ROOM ON THE REHAB UNIT. PT'S NURSE IN [facility] APPRISED OF PLAN WELL AND STATES SHE HAS ALREADY CALLED REPORT TO THE RECEIVING NURSE ON THE REHAB UNIT. REMAINDER OF NORMAL SALINE INFUSING NOW THEN PT WILL BE TRANSPORTED UP TO ROOM 516.
--- NOTE | 2018-08-13 18:09 | NUR ---
PT WAS TRANSPORTED SAFELY POST CHEMO TO 516, REPORT GIVEN TO LUCIA NEWBY AND [employer] PRECAUTIONS REVIEWED WITH ODIN AND THE VAT SKIMMER. [employer] PRECAUTIONS SIGN POSTED ON THE DOOR AND CART OUTSIDE OF ROOM.
--- NOTE | 2018-08-18 09:09 | HC ---
[facility] [place] [address] CONSULTATION Name: ASHLEY HERNANDEZ Room #: 222-P DIS IN M.R.#: [id number] Admission: 08/04/18 Attend Phys: Todd Grove MD Discharge: 08/13/18 Date of : 65 Report #: [id number] THIS REPORT FOR: //name// CC: Todd Grove [facility] physician/PCP DATE OF SERVICE: 08/12/2018 Patient in 222. HISTORY OF PRESENT ILLNESS: This 53-year-old white female was seen at the [facility] with complaints of shortness of breath and a dry cough. A chest x-ray was performed in evaluation and a CAT scan showing a left upper lobe lung mass. She was referred to [facility] for further evaluation. After transfer, she was noted to have abnormal liver function testing and underwent a liver biopsy on Friday. This shows a neuroendocrine tumor compatible with small cell lung cancer. She is a heavy lifelong cigarette smoker. PAST MEDICAL HISTORY: Significant for treated hypothyroidism. She has medically managed hypertension along with hyperlipidemia. She is a diabetic, on metformin. She has chronic obstructive pulmonary disease and morbid obesity. She has a prior repair of an anal fissure. ALLERGIES: BACTRIM AND AUGMENTIN. MEDICATIONS: As listed in the MFR. REVIEW OF SYSTEMS: Negative for any antecedent weight loss. She denied hemoptysis. She has not had headaches or been confused. She has not felt any new suspicious masses or other areas of pain. She had had some blood in her stool and constipation, which she attributed to her anal fissure. FAMILY HISTORY: Positive for her mom having a bone cancer. Her dad and sisters are diabetic. SOCIAL HISTORY: She is a smoker for 40 years at 1-3 packs per day. She is a nondrinker. REVIEW OF SYSTEMS: As in history of present illness. PHYSICAL EXAMINATION: GENERAL: Shows her to be alert and walking in her room. HEENT: Shows her mouth is clear. NECK: Supple. [facility] [address] [place] [address] CONSULTATION Name: ASHLEY HERNANDEZ Room #: [address] [place] [address] [place] ..#: [id number] Admission: 08/04/18 Attend Phys: Todd Grove MD Discharge: 08/13/18 Date of : 65 Report #: [id number] CARDIOVASCULAR: Normal S1, S2. CHEST: Clear. ABDOMEN: Shows morbid obesity. SKIN: Normal turgor. EXTREMITIES: Show 2+ lower extremity edema. NEUROLOGIC: No focal localizing signs. PSYCHIATRIC: Not agitated or confused. LYMPHATICS: Did not reveal any palpable supraclavicular adenopathy. HOSPITAL COURSE: Her CT scan shows an 8 x 5 large irregular mass in the left upper lobe of the lung with associated mediastinal and hilar adenopathy. Her liver is enlarged with multiple space occupying lesions. ASSESSMENT: Extensive stage small cell lung cancer. PLAN: The patient is from [place] and we have discussed her diagnosis and treatment with systemic chemotherapy. Unfortunately, these agents are not kept in stock at [facility], but I have requested carboplatin, STATION HELPER-16 as appropriate therapy and would hope to get started with her treatment on , Friday and Friday to receive STATION HELPER-16. She will receive one dose of carboplatin on with appropriate antiemetic premedications. I have discussed with Dr. Grove the possibility of transferring her subsequently to the rehab unit on Friday following her last dose of chemotherapy. This regimen would be given on an every 3-week basis and hopefully will lead to remission. This unfortunately is an incurable malignancy. Thanks for allowing us to see her in consultation and being allowed to participate in her care. <ELECTRONICALLY SIGNED> By: Yolie Steele MD 08/18/18 [id number] Yolie Steele MD /nt
== END 2018-08-13 17:54 | DRG 180 ==
LOC: 4E 21:43 → SICU 08-06 18:52 → ENTRNSPT 08-13 12:56 → EDTRNSPT 08-13 12:57 → EDTRNSPTSTS 08-13 13:05 → SICU 08-13 17:54
PROVIDERS: Hospitalist; Internal Medicine; Internal Medicine Hematology & Oncology; Internal Medicine Pulmonary Disease; Nurse Practitioner Acute Care; ADMIT Hospitalist
PROC: 5A09357 Assistance with Respiratory Ventilation, Less than 24 Consecutive Hours, Continuous Positive Airway Pressure (ICD-10-PCS; principal; 2018-08-08)
PROC: 5A09357 Assistance with Respiratory Ventilation, Less than 24 Consecutive Hours, Continuous Positive Airway Pressure (ICD-10-PCS; 2018-08-10)
PROC: 0FB23ZX Excision of Left Lobe Liver, Percutaneous Approach, Diagnostic (ICD-10-PCS; 2018-08-10)
PROC: 5A09357 Assistance with Respiratory Ventilation, Less than 24 Consecutive Hours, Continuous Positive Airway Pressure (ICD-10-PCS; 2018-08-13)
DX: C34.12 Malignant neoplasm of upper lobe, left bronchus or lung (principal); E43 Unspecified severe protein-calorie malnutrition; C78.7 Secondary malignant neoplasm of liver and intrahepatic bile duct; N36.0 Urethral fistula; K62.5 Hemorrhage of anus and rectum; Z68.44 Body mass index [BMI] 60.0-69.9, adult; E03.9 Hypothyroidism, unspecified; F32.9 Major depressive disorder, single episode, unspecified; E11.9 Type 2 diabetes mellitus without complications; I10 Essential (primary) hypertension; E78.00 Pure hypercholesterolemia, unspecified; E66.01 Morbid (severe) obesity due to excess calories; G47.33 Obstructive sleep apnea (adult) (pediatric); J44.9 Chronic obstructive pulmonary disease, unspecified; K59.00 Constipation, unspecified; F17.210 Nicotine dependence, cigarettes, uncomplicated; R59.1 Generalized enlarged lymph nodes; R74.0 Nonspecific elevation of levels of transaminase and lactic acid dehydrogenase [LDH]; D72.829 Elevated white blood cell count, unspecified; Z09 Encounter for follow-up examination after completed treatment for conditions other than malignant neoplasm; Z86.73 Personal history of transient ischemic attack (TIA), and cerebral infarction without residual deficits; Z90.49 Acquired absence of other specified parts of digestive tract; Z88.2 Allergy status to sulfonamides; Z88.8 Allergy status to other drugs, medicaments and biological substances; Z80.0 Family history of malignant neoplasm of digestive organs; Z80.8 Family history of malignant neoplasm of other organs or systems; Z83.3 Family history of diabetes mellitus; Z23 Encounter for immunization; Z79.899 Other long term (current) drug therapy
CPT/HCPCS: 10783; 15002

== ENCOUNTER 2018-08-13 15:07 | Inpatient (IN) | payer OTHER ==
[~2018-08-13] VITALS: Ht 175.3 cm; Wt 203.1 kg
--- NOTE | ~2018-08-13 | PLAN ---
[facility] [place] [address] REHAB UNIT PLAN OF CARE Name: ASHLEY HERNANDEZ Room #: 516-1 ADM IN M.R.#: [id number] Admission: 08/13/18 Attend Phys: Elliot Fernandez MD Discharge: Date of : 65 Report #: [id number] THIS REPORT FOR: //name// CC: Elliot Fernandez [facility] physician/PCP DATE OF SERVICE: 08/15/2018 PROGRESS NOTE/OVERALL PLAN OF CARE SUBJECTIVE: The patient is seen back in followup. She is in no distress. Last recorded temperature 97.4, pulse 91, respirations 16, blood pressure is 149/59. She underwent a venous Doppler study yesterday, which was negative. Lower extremities appear stable or the edema/swelling is slightly improved today. She has been working in therapies with bed mobility min assist, lower body dressing was max assist, bathing was moderate assistance. She did miss some therapies yesterday because of the Doppler study and waiting on the results. I had held her physical therapy. She did receive speech therapy and was noted to have some bvxx-rv-htjehshp cognitive deficits and jang-ab-rldpiszq memory deficits. ASSESSMENT: 1. Lung mass with metastasis to liver and possible metastasis noted to the brain. 2. Status post liver biopsy on 08/10/2018. 3. Bloating, constipation. She appears better today. 4. Left lower extremity greater than right lower extremity swelling. This improved from yesterday. Venous Doppler studies were negative as noted. 5. Obstructive sleep apnea. 6. Morbid obesity. 7. Diabetes mellitus type 2. 8. Chronic perianal fistula. PLAN: The overall plan of care is based on the pre-admission screen, post-admission physician evaluation, and information garnered from therapy assessments. 1. Estimated length of stay is probably 10 days or so depending upon how she does. 2. Medical prognosis is reasonably good. 3. Anticipated interventions include the interdisciplinary acute inpatient rehabilitation program. 4. Anticipated functional outcomes would be for the patient to become modified independent with transfers, mobility and ADLs at least at the walker level as well as improvement with cognition so that she can return back to the home setting. 5. Discharge destination would be back to the home setting where she has been living in a mobile home with her sister. [place] [id number] REHAB UNIT PLAN OF CARE Name: ASHLEY HERNANDEZ Room #: 516-1 [facility] IN ..#: [id number] Admission: 08/13/18 Attend Phys: Elliot Fernandez MD Discharge: Date of : 65 Report #: [id number] 6. Expected therapy by discipline includes PT, OT and speech 1 hour per day, each five days a week throughout the duration of the acute inpatient rehabilitation stay. We may be able to decrease some of the speech therapy depending upon how she does and increase the PT and OT. By: 0758 1410 Elliot Fernandez MD /nicolle
[~2018-08-13 15:07] MED LIST changes: +ALEVE220 MG PO; +ANORO ELLIPTA1 EACH INH; +ASPIRIN325 PO; +BASAGLAR K100 UNIT/1 SUBQ; +CLARITIN10 MG PO; +COLACE100 MG PO; +FLONASE 0.05%50 MCG NASAL; +LEVOTHYROXINE200 MC1 PO; +LIPITOR 20 MG T20 M1 PO; +METFORMIN HCL500 MG PO; +MIRALAX17 GM PO; +NEXIUM40 MG PO; +NOVOLOG100 UNIT/1 SUBQ; +POTASSIUM PO; +PRESERVISION A1 EAC2 PO; +SINGULAIR 10 MG10 M1 PO; +TOPROL XL25 MG PO; +TRIAMCINOLONE A80 G2 TOP; +TYLENOL EXTRA500 MG PO; +VENTOLIN HFA 1818 GM INH; +VITAMINC500 PO; +ZANTAC 150MG T150 MG PO; +ZPAK PO
[2018-08-13 18:10] VITALS: BP 141/82
--- NOTE | 2018-08-14 03:36 | NUR ---
ASSESSMENT: PT REMAIN ALERT AND ORIENT TIMES FOUR. THAI. MORBID OBESE, WEIGHS 447 PER BED. PT IS ABLE TO WALK TO THE BR WITH STEADY GAIT. PT IS UNABLE TO WIPE HER SELF POST USING THE BR. LEFT SIDE GROIN AREA IS RED, NYSTATIN POWDER APPLIED. IN FOLDS, INNER DRY AND TRIAMCINOLONE CREAM APPLIED. PT STATES THAT SHE HAS LOST HER EYEGLASSES AND SOME APPLE FLAVORED LIP BALM. PT FEELS THAT SHE LEFT THESE ITEMS IN ROOM [facility]. THIS RN CALLED TWICE TO [facility] AND THEY STATE THAT THEY HAVE NOT FOUND THE GLASSES/LIP BALM. THE PT SAID THAT THEY WERE IN HER BED SIDE TABLE. ACCORDING TO THE STAFF IN [facility] THEY COULD NOT FIND THEM IN THE BEDSIDE TABLE. THEY SUGGESTED THAT PERHAPS SHE LEFT THEM IN THE CLINIC WHEN SHE WENT TO HAVE A CHEMO INFUSION. THE PT SAID THAT SHE WILL ASK THE CLINIC TOMORROW ABOUT HER GLASSES/LIP BALM. PT C/O CHRONIC ABD/BACK PAIN, AN EXTRA STRENGTH TYLENOL WAS GIVEN WITH PARTIAL RELIEF. PT USES CPAP AT NIGHT, TOLERATED WELL. PT'S PARENTS WERE AT THE BEDSIDE AT THE BEGINNING OF THE SHIFT AND STATED THAT THEY LIVE 80 MILES AWAY BUT WILL BE BACK TOMMOROW AROUND 11:00. TOLERATING PO INTAKE, DENIES NAUSEA. SLOW PROGRESS TOWARDS DC GOALS, WILL CONTINUE TO MONITOR.
[2018-08-14 05:35] LABS: HEMATOCRIT 40.8 % (37.0-47.0); HEMOGLOBIN 13.3 gm/dL (12.0-15.0); MCH 29.2 pg (26.0-34.0); MCHC 32.6 g/dL (28.0-37.0); MCV 89.7 fL (80.0-100.0); RBC 4.55 mil/uL (4.20-5.00); RDW 16.3 % (10.5-14.5); WBC 16.2 thou/uL (4.0-11.0)
[2018-08-14 05:43] LABS: CALCIUM 8.8 mg/dL (8.5-10.1); CREATININE 0.8 mg/dL (0.6-1.0)
[2018-08-14 05:50] LABS: POTASSIUM 5.2 mmol/L (3.5-5.1)
--- NOTE | 2018-08-14 08:00 | NUR ---
chart review. pt new to [facility] rehab. been in hospital, new dx of cancer. she will be having 3 doses of chemo. 1st dose was on 08/13/18. cm intro to cm, team meets, dcp, and home health. pt is a & o x 3, pleasant, quiet and able to make her needs know. karina reported " live in mobile home with sister. have support from mom. use cpap at home, it is here for pt to cont using. independent when feeling ok. manage own medication at home. no past home health or rehab."/pt. no complaints or concerns voiced during visit. will cont following as needed for dc needs.
[2018-08-14 08:48] VITALS: BP 137/76
--- NOTE | 2018-08-14 12:08 | NUR ---
ASSUMED CARES AT 0700. PT ALERT AND ORIENTED*4. C/O BACK PAIN 02/03, OXYCODONE ADMINISTERED. VITALS REMAIN STABLE. PT HAS GENERALISED EDEMA, NON-PITTING, WORSE ON LLE. PT STATED THAT IT WAS DIFFICULT TO LIFT LLE. DOPPLER ORDERED FOR LLE, AWAITING TEST AND RESULTS, ALL THERAPIES ON HOLD. PT LEAVING FOR CHEMO INFUSION AT 1230. ISOLATION FOR CHEMO MAINTAINED. PT HAS HAD 2 LG BM THIS AM BLOOD TINGED, HOSPITALIST NOTIFIED. POTASSIUM THIS AM WAS 5.2, CORRECTED. PT ATE ALL HER BREAKFAST BUT REFUSED LUNCH, STATED THAT SHE EATS ONLY 2 MEALS A DAY. Q1H VISUAL CHECKS. CALL LIGHT WITHIN REACH. FALL PRECAUTIONS IN PLACE
--- NOTE | 2018-08-14 13:03 | NUR ---
Nutrition: RD seen due to consult received. Pt admit to rehab unit with lung mass, probable mets to liver and brain. Chart reviewed. Weights up ~90# with fluid, current BMI 66, class 3 extreme obesity. Currently having 3 days of chemo which she reports is affeccting her appetite as was previously ok. Bloating, early satiety an issue. Encourage smaller more frequent meals if possible. Tends to eat a large breakfast and then does not want lunch. Able to order meals. RD assisted with food preferences. Will followup early next week to determine further POC, supplement need.
--- NOTE | 2018-08-14 15:26 | NUR ---
DAY #2 ETOPOSIDE GIVEN. PATIENT TOLERATED WELL. IV SITE WNL. RECEIVED BLOOD RETURN FROM IV PRIOR TO STARTING CHEMO. TRANSFERRED BACK TO REHAB.
[2018-08-14 19:45] VITALS: BP 149/59
--- NOTE | 2018-08-15 02:38 | NUR ---
PT ALERT AND ORIENTED X 4. AMB TO BR WITH WALKER AND ASSIST X 1. SOB WITH ACTIVITY. CPAP ON DURING THE NIGHT. CONT 02 SAT MONITOR. BLOOD SUGAR 160 AT HS. LISPRO INSULIN NOT GIVEN SINCE DINNER DOSE HAD BEEN GIVEN LATE. LANTUS INSULIN GIVEN ORDERED. PT C/O PAIN IN HER BACK. OXYCODONE GIVEN AT HS AND PT SLEEPING UPON REASSESSMENT. NO C/O NAUSEA. CHEMO PRECAUTIONS MAINTAINED. BED ALARM ON FOR SAFETY. PT CHECKED ON HOURLY ROUNDS.
[2018-08-15 06:31] LABS: ABSOLUTE NEUTROPHILS 15.6 thou/uL (1.4-8.2); BASOPHILS 0.3 % (0.0-2.0); EOSINOPHILS 0.1 % (0.0-3.0); HEMATOCRIT 41.5 % (37.0-47.0); HEMOGLOBIN 13.8 gm/dL (12.0-15.0); LYMPHOCYTES 4.4 % (24.0-44.0); MCH 29.8 pg (26.0-34.0); MCHC 33.3 g/dL (28.0-37.0); MCV 89.7 fL (80.0-100.0); MONOCYTES 2.7 % (1.0-8.0); PLATELET COUNT 225 thou/uL (150-400); POLYS 92.5 % (36.0-66.0); RBC 4.63 mil/uL (4.20-5.00); RDW 15.7 % (10.5-14.5); WBC 16.9 thou/uL (4.0-11.0)
[2018-08-15 06:35] LABS: CALCIUM 8.7 mg/dL (8.5-10.1); MAGNESIUM 2.4 mg/dL (1.8-2.4); POTASSIUM 4.7 mmol/L (3.5-5.1)
[2018-08-15 07:40] VITALS: BP 137/72
[2018-08-15 10:57] VITALS: BP 124/64
--- NOTE | 2018-08-15 11:15 | NUR ---
DAY #3 OF CHEMO, PT RECEIVING FINAL DOSE OF ETOPOSIDE TODAY. 500ML NORMAL SALINE GIVEN WELL, PREMED WITH ALOXI. REMOVED PREVIOUS SALINE LOCK FROM R FOREARM THAT WAS STARTED AN INPT ON 08/10. NO S/S PHLEBITIS, FLUSHED EASILY BUT PT REPORTED SLIGHT SORENESS AFTER INFUSION YESTERDAY. VASCULAR ACCESS TEAM PLACED #20 IN LEFT UPPER ARM WITH USE OF DOPPLER. EXCELLENT BLOOD RETURN OBTAINED. REVIEWED TEACHING AGAIN WITH PT TODAY. VSS. PT DENIES ANY UNTOWARD SIDE EFFECTS NOTED AFTER BOTH PREVIOUS DAYS' TREATMENTS. DENIES NAUSEA. ETOPOSIDE INFUSING NOW. PT NAPPING.
[2018-08-15 11:57] VITALS: BP 130/64
--- NOTE | 2018-08-15 11:58 | NUR ---
COMPLETED CHEMO DAY 3 WITHOUT INCIDENT TODAY. LAST DAY. NO S/S REACTION. NO CONCERNS NOTED. IV REMAINS PATENT L UPPER ARM. EMOTIONAL SUPPORT GIVEN. WILL TRY TO CHECK BACK ON PT IN A COUPLE DAYS TO SEE HOW SHE IS DOING. CHEMO SAFE HANDLING PRECAUTIONS REMAIN IN PLACE.
--- NOTE | 2018-08-15 14:13 | NUR ---
ASSUMED CARES AT 0700. PT ALERT AND ORIENTED*4. ABLE TO VOICE HER NEEDS. REPORTS SLEPT GOOD LAST NIGHT. C/O BACK PAIN 7/10, OXYCODONE ADMINISTERED 2X, PAIN IS 2/10 NOW. VITALS REMAIN STABLE. PT HAS GENERALISED EDEMA, NON-PITTING, WORSE ON LLE. CONTINUE TO BE ON LASIX. IV ON RIGHT FA INFILTRATED. CALLED IV TEAM. NEW IV ON LEFT AC. PT HAD CHEMO INFUSION AT AROUND 1030. ISOLATION FOR CHEMO MAINTAINED. PT HAS HAD 2X MODERATE BM THIS AM BLOOD TINGED, HOSPITALIST NOTIFIED YESTERDAY. POTASSIUM THIS AM 4.7, WAS 5.2 YESTERDAY. OFFERED SUPPORTIVE CARE. REASSESSMENT PER CHART. PT HAS REDNESS ON BOTTOM, UNBLANCHABLE, PICTURE TAKEN, BARRIER CREAM APPLIED. ENCOURAGE PT TO TURN SELF IN BED TO PREVENT PRESSURE SORES. WILL CONTINUE TO MONITOR. VSS ON RA. LABS REVIEWED. DRUG REGIMENT REVIEWED. PT REFUSED METFORMIN, SHE SAID IT MESSED UP MY SISTER'S KIDNEY AND LIVER. NOTIFIED DR. MERINO OBTAINED ORDER TO D/C METFORMIN. HELD MIRALAX THIS AM. PT HAD 2X SOFT BM. COLACE GIVEN. Q1H VISUAL CHECKS. CALL LIGHT WITHIN REACH. FALL PRECAUTIONS IN PLACE.
[2018-08-15 20:30] VITALS: BP 141/58
--- NOTE | 2018-08-16 01:33 | NUR ---
assumed care at approx 1900 evening 08/15. pt sitting up at change of shift in recliner resting and visiting with several family members at bedside. pt alert and oriented x4, appropriate and cooperative. pt took hs meds with water tolerating well. pt wearing cpap and pulse oximeter in place. pt appears to be sleeping soundly with hourly rounding checks. bed alarm on and call light in reach. will continue to monitor.
[2018-08-16 08:10] VITALS: BP 129/61
--- NOTE | 2018-08-16 14:43 | NUR ---
ASSUMED CARE AT 0715. PT. RESTING QUIETLY IN BED. SHE HAS A NS LOCK IN HER LEFT AC. MESSAGE LEFT TO CALL IF PT. IS NAUSEATED, BUT NONE WAS NOTED OR VOICED. SHE CONTINUES TO C/O ONGOING BACK PAIN. SHE RECEIVED AN OXYCODONE AT ABOUT 1300 FOR THIS. SHE STATE IF OFFERED SOME RELIEF. HAS BEEN UP AMBULATING TO THE BATHROOM TODAY ASSISTED BY STAFF. CREAM PUT ON HER ARMS/LEGS RASH. NO NEW PROBLEMS NOTED OR VOICED.
[2018-08-16 22:52] VITALS: BP 148/78
--- NOTE | 2018-08-17 02:11 | NUR ---
PT ALERT AND ORIENTED X 4. AMB TO BR WITH WALKER AND ASSIST X 1. SOB WITH EXERTION. CPAP ON DURING THE NIGHT. CONT 02 SAT MONITOR. BLOOD SUGAR 226 AT HS. INSULIN GIVEN ORDERED. NO C/O NAUSEA. PT C/O PAIN IN ABDOMEN AND RIBS. TYLENOL GIVEN AT HS AND PT SLEEPING UPON REASSESSMENT. BED ALARM ON FOR SAFETY. PT APPEARS TO BE SLEEPING ON HOURLY ROUNDS.
[2018-08-17 07:15] VITALS: BP 132/62
--- NOTE | 2018-08-17 10:50 | NUR ---
ASSUMED CARES AT 0700. PT AWAKE, ALERT AND ORIENTED*4. C/O GENERALIZED PAIN (RIBS, ABDOMEN, LOWER BACK AND BLE), PAIN MEDICATION ADMINISTERED NEEDED. PT CONTINUES TO HAVE EDEMA AROUND THE ABDOMEN AND BLE FROM WAIST DOWN. CONTINUES TO HAVE A RASH IN HER ARMS, BACK AND LEGS. REDNESS AROUND GROIN AREA, CLEANED AND ZGUARD APPLIED. POST CHEMO PRECAUTIONS MAINTAINED. Q1H VISUAL CHECKS. CALL LIGHT WITHIN REACH. FALL PRECAUTIONS IN PLACE
[2018-08-17 19:59] VITALS: BP 145/61
[2018-08-18 05:46] LABS: ABSOLUTE NEUTROPHILS 8.7 thou/uL (1.4-8.2); BASOPHILS 0.5 % (0.0-2.0); EOSINOPHILS 2.9 % (0.0-3.0); HEMATOCRIT 38.8 % (37.0-47.0); LYMPHOCYTES 9.9 % (24.0-44.0); MCH 29.6 pg (26.0-34.0); MCHC 33.5 g/dL (28.0-37.0); MCV 88.4 fL (80.0-100.0); MONOCYTES 0.5 % (1.0-8.0); PLATELET COUNT 177 thou/uL (150-400); POLYS 86.2 % (36.0-66.0); RBC 4.39 mil/uL (4.20-5.00); RDW 15.9 % (10.5-14.5); WBC 10.1 thou/uL (4.0-11.0)
[2018-08-18 06:25] LABS: CALCIUM 8.5 mg/dL (8.5-10.1); CREATININE 0.7 mg/dL (0.6-1.0); MAGNESIUM 2.3 mg/dL (1.8-2.4); POTASSIUM 4.1 mmol/L (3.5-5.1); TOTAL BILIRUBIN 5.5 mg/dL (<0.1-1.0); TOTAL PROTEIN 5.2 g/dL (6.4-8.2)
--- NOTE | 2018-08-18 06:46 | NUR ---
Assumed pt care at 1900. Pt A&Ox3, able to make needs known, reassessment completed per [employer]. Pt SOA on exertion, ambulates well with steady gait with x1 assist and walker and gaitbelt. Medicated per PRN orders for c/o rib, back and abdm pain with relief verbalized. Pt had small amount bright red blood in toilet bowl this a.m. and reports straining to have BM, pt had 1 med soft formed BM, voiding without difficulty. Wore CPAP throughout the NOC. Pt currently resting in bed, call light within reach, fall precautions in place, will continue to be monitored.
--- NOTE | 2018-08-18 13:45 | NUR ---
team meeting, recommendation: , [facility] ( pt, ot, nursing, sw, and bath aid.), bfww, support for medication management and bill management. will cont following as needed for dc needs.
--- NOTE | 2018-08-18 19:30 | NUR ---
ASSUMED CARES AT 0700. PT AWAKE, ALERT AND ORIENTEDX4. ABLE TO VOICE HER NEEDS. C/O GENERALIZED PAIN (RIBS, ABDOMEN, LOWER BACK AND BLE), PAIN MEDICATION ADMINISTERED NEEDED. LIDODERM PATCHES ON LOWER BACK, SHE SAID THEY ARE HELPED. PT CONTINUES TO HAVE EDEMA AROUND THE ABDOMEN AND BLE FROM WAIST DOWN. CONTINUES TO HAVE A RASH IN HER ARMS, BACK AND LEGS. REDNESS AROUND GROIN AREAS, C/O PAIN AND SORES, CLEANED, INNER DRY APPLIED. SHE SAID PAIN RELIEF. OFFERED SUPPORTIVE CARE. BS MONITOR, INSULIN, MEDS AND PRN PAIN MEDS GIVEN ORDERED. LABS REVIEWED. WBC 10.1, HGB 13. CREATIN 0.7. CONTINUE TO BE ON LASIX FOR GENERALIZED EDEMA ON ABD. HAD 2X SOFT BM. PT CONTINUE TO BE ON LEVAQUIN FOR PNEUMONIA. ENCOURAGED PT TO DO DEEP BREATHINGS. UP WITH WALKER, PARTICIPATED WITH THERAPY. TOLERATED WELL, TIRED AND TOOK NAPS AFTER THERAPY. Q1H VISUAL CHECKS FOR NEEDS AND SAFETY. IV S.L ON LEFT AC REMAIN SINCE PT IS A HARD STICK. CALL LIGHT WITHIN REACH. FALL PRECAUTIONS IN PLACE. GAVE REPORT TO NIGHT NURSE TO CONTINUE TO MONITOR.
[2018-08-18 19:50] VITALS: BP 140/72
--- NOTE | 2018-08-19 04:05 | NUR ---
assumed care at approx 1900 evening 08/18. pt sitting up in recliner in room resting at change of shift. pt alert and oriented x4, appropriate and cooperative. pt took hs meds with water tolerating well. pt wearing cpap at present with continuous pulse oximeter in place. bed alarm on and call light in reach. will continue to monitor.
--- NOTE | 2018-08-19 09:45 | NUR ---
davon notified by bedside nurse that mom has some place for her daughter to go for little bit until, house is ready for karina to come home. davon spoke with pt mom " [facility], she needs good care, i would rather her get good care and have to drive little bit to see her than get bad care. don't want one that smells, until she can come home and it would not be long. education on dcp, back to home with hh and that is not possible per mom " i can not take care of 2 sick children at same time, this is just short term"/mom. advon passed on information to team, and spoke with pt " mom told me last night and guess they will talk me at those place"/karina, education that referrals had been sent but facility has to be able to met pt needs, take into consideration of medication and equip someone might need " ok thank you for keeping me updated"/pt. [facility] unable to accept. 1500 cm spoke with [facility] had question on if she going to cont chemo and dme she might need. passed on information that next chemo will be week of 08/31/18, use bariatric walker, is working with therapy here. " will get back with you tomorrow"/rolando sharma. davon spoke with pt mom " [facility] then [facility] is good facility [place] to [place] of there"/mom. will cont following and send referrals as needed to met her needs.
[2018-08-19 12:08] LABS: HEMATOCRIT 37.4 % (37.0-47.0); HEMOGLOBIN 12.5 gm/dL (12.0-15.0); MCH 29.5 pg (26.0-34.0); MCHC 33.5 g/dL (28.0-37.0); RBC 4.24 mil/uL (4.20-5.00); RDW 15.9 % (10.5-14.5); WBC 5.5 thou/uL (4.0-11.0)
--- NOTE | 2018-08-19 12:23 | NUR ---
FAXED REFERRAL TO [facility] SPOKE WITH JOHN IN ADM. SHE RECEIVED REFERRAL AND WILL NOT BE ABLE TO ACCEPT PT.
[2018-08-19 12:33] LABS: CALCIUM 8.3 mg/dL (8.5-10.1); CREATININE 0.8 mg/dL (0.6-1.0); POTASSIUM 3.6 mmol/L (3.5-5.1); TOTAL BILIRUBIN 4.6 mg/dL (<0.1-1.0); TOTAL PROTEIN 5.8 g/dL (6.4-8.2)
--- NOTE | 2018-08-19 14:05 | NUR ---
[facility] SHE HAS DON REVIEWING REFERRAL. DCP TO FOLLOW.
--- NOTE | 2018-08-19 16:15 | NUR ---
DCP JUST SPOKE WITH VALENTIN IN ADM. SHE HAD (DON) REVIEW REFERRAL AND THEY CANNOT ACCEPT PT. DUE TO HER WEIGHT THEY CANNOT ACCOMODATE WITH EQUIPMENT AND DUE TO FINANCIAL. DCP TO FOLLOW.
--- NOTE | 2018-08-19 17:08 | NUR ---
ASSUMED CARE OF PT AT 0715. PT IS A&OX4. IS ON ROOM AIR. IS STABLE. REPORTS PAIN IN LOWER BACK THAT IS BEING MANAGED WITH PAIN MEDS. IS UP WITH 1 ASSIST, GB, WALKER. FALL PRECAUTIONS & HOURLY ROUNDING MAINTAINED. PT HAS BEING CRYING OFF & ON MOST OF THIS SHIFT WHEN AMBULATING. HAS 2 LIDOCAINE PATCHES ON LOWER BACK, NICOTINE PATCH ON R SHOULDER, & INTERDRY UNDER PANUS. PT HAS ACCU CHECKS ACHS WITH LOW DOSE SS INSULIN & 20 UNITS SCHEDULED FOR BREAKFAST & DINNER. PT RIGHT SIDE ABD IS WEEPING. IS AWARE. LABS & VITALS REVIEWED. WILL CONTINUE TO MONITOR.
[2018-08-19 20:30] VITALS: BP 131/73
--- NOTE | 2018-08-20 01:10 | NUR ---
PT ALERT AND ORIENTED X 4. UP IN RECLINER UNTIL NOW. TRANSFERRED TO BED WITH ASSIST X 1. BLOOD SUGAR 111 AT HS. 25 UNITS LANTUS INSULIN GIVEN PER ORDER FROM GINNY TONY NP. PT C/O PAIN IN HER BACK. OXYCODONE GIVEN AT HS. BED ALARM ON FOR SAFETY. PT CHECKED ON HOURLY ROUNDS.
[2018-08-20 09:18] VITALS: BP 114/74
--- NOTE | 2018-08-20 13:20 | NUR ---
FAXED REFERRAL TO [facility] LEFT MSG WITH FELIPE IN ADM. THAT REFERRAL SENT. FAXED REFERRAL TO [facility]. FOR SWING BED FOR SKILLED. SPOKE WITH KAUSHAL IN ADM. AND THE WILL REVIEW. DCP TO FOLLOW.
--- NOTE | 2018-08-20 14:12 | NUR ---
ASSUMED CARE AT 0700. PATIENT IS ALERT AND ORIENTED X4. PATIENT ANDRE'S, EFFICIENCY ENGINEER ARE EQUAL. UP WITH ASSIST OF 1 STAFF WITH GAIT BELT AND WALKER. LUNGS ARE CLEAR. ABD IS SOFT WITH BSX4. BM X2. FALL AND SAFETY PROTOCOLS IN PLACE. C/O PAIN IN HER BACK . MEDICATED WITH PRN PAIN MED. AND PAIN PATCHES. UP IN THE W/C MOST OF THE DAY. WILL CONTINUE TO MONITER.
[2018-08-20 20:07] VITALS: BP 135/64
--- NOTE | 2018-08-21 04:25 | NUR ---
TRIAMCINALONE TO RED RASHY AREAS. HYDROCORISONE CREAM PER RECTUM. LOOSE STOOL APPRECIATES PAIN PILL AT HS, STAYED UP UNTIL O030 TALKING ON PHONE. HAS BEEN RESTING WITH CPAP ON SINCE 0030. UP TO BATHROOM WITH GAIT BELT, WALKER, STANDBY ASSIST.
[2018-08-21 08:15] VITALS: BP 129/60
--- NOTE | 2018-08-21 10:59 | NUR ---
ASSUMED CARES AT 0700. PT AWAKE, ALERT AND ORIENTED*4. VITALS STABLE. PT C/O PAIN IN HER LOWERBACK, RIBS AND ABDOMEN 11/04, PAIN MEDICATION ADMINISTERED ORDERED. LUNG SOUNDS CLEAR. HS SOUNDS S1S2, PT CONTINUES TO HAVE EDEMA AROUND THE ABDOMEN, BUTTOCKS AND BLE, LASIX ADMINISTERED ORDERED. ABDOMEN FIRM AND DISTENDED. PT CONTINUES TO HAVE LOOSE STOOLS, AWAITING STOOL CULTURE RESULTS, PT REMAINS IN SPECIAL PRECAUTIONS FOR THE TIME BEING. KUB ORDERED, AWAITING RESULTS. PT C/O FEELING COLD THIS AM, WARM BLANKETS PROVIDED WITH MINIMAL EFFECT. PT UP WITH 1 PERSON MINIMAL ASSIST, AMBULATING THE HALLWAY WITH THERAPY AND TOLERATED WELL. Q1H VISUAL CHECKS. CALL LIGHT WITHIN REACH. FALL PRECAUTIONS IN PLACE
--- NOTE | 2018-08-21 11:45 | NUR ---
Nutrition followup. Pt eating 100% of meals on carb controlled diet. Weights trending signficantly higher with fluids. Diuresing. Current weight 66, extreme class 3 obesity. BG 111-228. Continue as low risk.
--- NOTE | 2018-08-21 15:40 | NUR ---
[facility] is able to accept for dcp on , spoke with liaison, had some question as to when next chemo would be and when pet is ordered eliseo for. davon spoke with bedside nurse and will contact oncology to see what is pt plan of care. " we will accept her, just needs to be carved out or if coming to hospital need to be in obs status"/rich mittalison. information passed on to pt and 5n team. davon spoke with pt mom ronny " oh good thank you, what at they going to do with stomach finding?/ronny. let her know that would pass on question on bedside nurse/[employer]/dr to address.
[2018-08-21 20:23] VITALS: BP 133/62
--- NOTE | 2018-08-22 04:49 | NUR ---
CALLS FOR STANDBY ASSIST TO AND FROM BATHROOM, RELIES ON STAFF FOR [facility]. JUST ONCE TONIGHT, SHE WAS INCONTINENT OF LARGE AMOUNT URINE. PAIN MED REQUESTED FOR BACK PAIN WHICH IS NOTICED MORE DURING TRANSFERS. UP IN CHAIR UNTIL 0130 WHEN SHE GOT IN BED AND STARTED OVERNIGHT CPAP. TRIAMCINILONE TO EVER-DECREASING REDDNED AREAS
[2018-08-22 08:00] VITALS: BP 127/54
--- NOTE | 2018-08-22 10:51 | NUR ---
ASSUMED CARES AT 0700. PT ASLEEP IN THE CHAIR, SLEEPY THIS AM. ALERT AND ORIENTED *4. PT STATED THAT SHE FELT VERY SORE R/T SLEEPING IN THE CHAIR FOR A FEW HRS LAST NOC. PT ENCOURAGED TO SLEEP IN BED TONIGHT IT HELPS WITH REPOSITIONING. C/O PAIN IN HER ABDOMEN, LOWERBACK AND RIBS, LIDOCAINE PATCH APPLIED TO HER LOWER BACK AND PT VERBALISED THAT IT HELPED WITH THE PAIN. PAIN MEDICATION ADMINISTERED NEEDED. PT CONTINUES TO HAVE EDEMA AROUND ABDOMEN, AND BLE. PT HASN'T HAD ANY LOOSE STOOLS TODAY, MIRALAX AND COLACE ADMINISTERED ORDERED. BS SOUNDS ARE HYPOACTIVE. PT UP WITH THERAPY AND AMBULATED, TOLERATED WELL. Q1H VISUAL CHECKS. CALL LIGHT WITHIN REACH. FALL PRECAUTIONS IN PLACE
[2018-08-22 19:45] VITALS: BP 110/59
--- NOTE | 2018-08-23 02:25 | NUR ---
ASSUMED CARE OF PT AT 1915. PT ALERT AND ORIENTED X4. AMBULATES TO BATHROOM WITH ASSIST OF ONE USING GAIT BELT AND WALKER. HAS HAD ONE SOFT UNFORMED BM. CPAP PLACED AT HS. PT C/O BACK PAIN, GIVEN OXYCODONE X1 THUS FAR. ABDOMEN IS OBESE, FIRM TO PALPATION WITH HYPOACTIVE BOWEL SOUNDS. PT REPORTS PASSING FLATUS, AND SUNDAY NAUSEA. LLE IS DARK RED ANTERIORALLY FROM KNEE TO ANKLE. AREA MARKED BY DAY RN, NO INCREASE IN SIZE. HAS APPEARED TO BE SLEEPING WHEN CHECKED ON HOURLY ROUNDS. FALL PRECAUTIONS IN PLACE.
[2018-08-23 05:38] LABS: HEMATOCRIT 37.1 % (37.0-47.0); MCH 28.9 pg (26.0-34.0); MCHC 32.2 g/dL (28.0-37.0); MCV 89.6 fL (80.0-100.0); RBC 4.14 mil/uL (4.20-5.00); RDW 15.3 % (10.5-14.5)
[2018-08-23 05:41] LABS: WBC 1.5 thou/uL (4.0-11.0)
[2018-08-23 05:56] LABS: ALBUMIN 1.9 g/dL (3.4-5.0); CALCIUM 8.4 mg/dL (8.5-10.1); CREATININE 0.7 mg/dL (0.6-1.0); TOTAL BILIRUBIN 2.6 mg/dL (<0.1-1.0); TOTAL PROTEIN 5.9 g/dL (6.4-8.2)
[2018-08-23 08:10] VITALS: BP 131/55
--- NOTE | 2018-08-23 10:01 | NUR ---
ASSUMED CARE AT 0700. PATIENT IS ALERT AND ORIENTED X4. PATIENT ANDRE'S, SAXOPHONE PLAYER ARE EQUAL. LUNGS ARE CLEAR. ABD IS SOFT WITH BSX4. MIRALAX AND COLACE CONTINUE ORDERED R/T POSSIBLE SBO. LEFT LEG HAS 2+ EDEMA AND CELLULITIS IN THE LEG. PATIENT WAS STARTED ON ABT. PATIENT IS UP TO THE BATHROOM TO VOID AND HAVE SMALL BM. PATIENT WAS CLEANED UP AND BARRIER CREAM WAS APPLIED. FALL AND SAFETY PROTOCOLS IN PLACE. C/O PAIN IN HER BACK. PATIENT TAKES PRN PAIN MEDS FOR THIS PAIN. PATIENT UP IN CHAIR WITH LEGS ELEVATED. WILL CONTINUE TO MONITER. LIDOCAINE PATCHES APPLIED TO LOWER BACK.
--- NOTE | 2018-08-23 10:37 | NUR ---
PATIENT WBC COUNT 1.5. NOTIIFED HEMATOLOGY CORPORATE COMPLIANCE MANAGER PER DR. LION INSTRUCTIONS FOR PRECAUTIONS NEEDED FOR THIS PATIENT.
[2018-08-23 19:39] VITALS: BP 130/69
--- NOTE | 2018-08-23 19:39 | HC ---
[facility] [place] [address] CONSULTATION Name: ASHLEY HERNANDEZ Room #: 516-1 ADM IN M.R.#: [id number] Admission: 08/13/18 Attend Phys: Elliot Fernandez MD Discharge: Date of : 65 Report #: [id number] THIS REPORT FOR: //name// CC: Elliot Fernandez FAM physician/PCP DATE OF SERVICE: 08/22/2018 NEUROBEHAVIORAL STATUS EXAMINATION ATTENDING PHYSICIAN: Elliot Fernandez MD APPRAISAL COORDINATOR: Marco Armijo, PhD CLINICAL PRESENTATION: The patient is a 53-year-old morbidly obese female admitted to the rehabilitation unit of [facility] for comprehensive inpatient rehabilitation program. She was admitted for assistance and improvement of activities of daily living, mobility and mental status secondary to deficits from lung mass with metastasis to the liver and possible metastasis noted in the brain. She is status post liver biopsy on 08/10/2018. The assessment also includes bloating/constipation, left lower extremity greater than right lower extremity swelling, obstructive sleep apnea, morbid obesity, diabetes mellitus type 2, chronic perineal fistula. A complete description of her medical condition and history can be found in her medical record. Neuropsychological consultation was requested to provide assistance in the assessment of cognitive and emotional status and to provide recommendations and services. Prior to this most recent admission, she was living independently with her sister in her own home. The patient had discontinued driving because of dizziness. She reports having been on disability since 2008 from cerebrovascular disease. The patient reports having had prior strokes. She has 1 older and 1 younger sister. She has no children and not . Her parents are supportive. 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 TECHNIQUES UTILIZED: Clinical interview, review of medical records, staff consultation and behavioral observation, family interview -- mother, mini mental status exam 2 standard version and clock drawing. EXAMINATION FINDINGS: The patient was alert and cooperative with the assessment. She accurately described events surrounding her admission. There is no evidence of aphasia. Her thoughts are logical and goal oriented. There is no evidence of thought disorder, auditory or visual hallucinations. A longstanding history of tobacco abuse is reported. She indicates smoking approximately 1-1/2 packs per day for 40 years. There is no alcohol/drug abuse, [facility] [address] [address] CONSULTATION Name: ASHLEY HERNANDEZ Room #: [address] [place] [address] [place] [facility].#: [id number] Admission: 08/13/18 Attend Phys: Elliot Fernandez MD Discharge: Date of : 65 Report #: [id number] however. Her symptoms are reported to include variability in memory and anxiety regarding her medical wellbeing. She does not report subjective depression, difficulty with sleep, appetite or word finding. Performance on the MMSE 2 brief version is within normal limits with a raw score of 15/16, which is a T score of 49. She was 3/3 for registration, 5/5 for orientation to time and place and 2/3 for immediate recall of 3 items after a brief time delay and distraction. Her performance on the MMSE 2 standard version was within normal limits with a raw score of 28/30. She missed 1 item on serial 7's. Naming, repetition, comprehension, reading, writing and copying a simple geometric design were all within normal limits. Clock drawing was within normal limits. The patient is primarily presenting with anxiety. Neurocognitive functioning appears within normal limits. Subtle difficulty may be noted in concentration and memory. DIAGNOSTIC IMPRESSION: Adjustment disorder with anxiety and depressed mood. RECOMMENDATIONS: The patient has been followed by psychiatry and continued use of an antidepressant is suggested. The patient may benefit from intermittent counseling services to assist in adjustment. General cognitive functioning appears well maintained at this time. Smoking cessation program along with dietary consult is also suggested to help with the development of a more healthy lifestyle. Thank you very much for allowing me to provide the consultation on this patient. <ELECTRONICALLY SIGNED> By: Marco Armijo, PhD 08/23/18 [id number] Marco Armijo, PhD /nt
--- NOTE | 2018-08-24 03:39 | NUR ---
PT TRANSFERRING TO BEDSIDE COMMODE WITH STANDBY ASSIST AND IS TOLERATING FAIR. LORTAB PROVIDING PAIN RELIEF. RESTING COMFORTABLY. NO NEEDS VOICED. CALL LIGHT WITHIN REACH. WILL CONTINUE TO PROVIDE FREQUENT OBSERVATION.
[2018-08-24 04:11] LABS: RBC 3.69 mil/uL (4.20-5.00)
[2018-08-24 04:14] LABS: HEMATOCRIT 32.8 % (37.0-47.0); HEMOGLOBIN 10.8 gm/dL (12.0-15.0); MCH 29.4 pg (26.0-34.0); MCHC 33.1 g/dL (28.0-37.0); RDW 15.1 % (10.5-14.5)
[2018-08-24 04:37] LABS: WBC 1.5 thou/uL (4.0-11.0)
[2018-08-24 04:48] LABS: ALBUMIN 1.7 g/dL (3.4-5.0); CALCIUM 7.9 mg/dL (8.5-10.1); CREATININE 0.7 mg/dL (0.6-1.0); TOTAL PROTEIN 5.3 g/dL (6.4-8.2)
[2018-08-24 04:52] LABS: POTASSIUM 2.9 mmol/L (3.5-5.1)
[2018-08-24 08:15] VITALS: BP 130/55
--- NOTE | 2018-08-24 14:17 | NUR ---
davon spoke with liaison with [facility] and " good for tomorrow, will you or team call [facility] # [phone], with center to double check on obs status to go to [facility] office for chemo. davon spoke with ozzy who stated " i will have regional call [facility] office and call you back in few mins. davon spoke with pt mom ronny rt dcp " just making sure she was still being dc tomorrow to [facility]"/ronny. education that she will be dc tomorrow and still working on outpt chemo appointment and pet scan. will cont following as needed for dc needs.
--- NOTE | 2018-08-24 16:32 | NUR ---
FAXED CLINICAL UPDATE TO [facility] SPOKE WITH SUSAN IN ADM. SHE RECEIVED UPDATE. DCP TO FOLLOW.
--- NOTE | 2018-08-24 20:32 | NUR ---
ASSUMED PT CARE AT 0700H. PT A&O X4. PT HAS NO S/S OF DISTRESS. PT STATE GENERALIZED PAIN. PT TOLERATES MEDS AND MEALS. PT RED BILATERAL LEGS, BACK AND ABD TREATED WITH TOP MED. PT AMBULATES WITH WALKER TO BEDSIDE COMMODE. NEW ORDERS FOR ASHLEY WRAP ON BILATERAL LEGS AND NEW MEDS ACKNOWLEDGED AND DONE. PT'S PARENTS VISITED AND CARRIED SOME OF HER STUFF. PT CALLS APPROPRIATE. PT ON LOW WBC CONTINUES TO BE MONITORED FOR SAFETY.
[2018-08-24 21:00] VITALS: BP 138/78
--- NOTE | 2018-08-25 06:07 | NUR ---
REWRAPPED BILATERAL LEGS WITH ASHLEY WRAPS. RED, BLISTERED SKIN LEFT LEG WITH PITTING EDEMA IS UNCHANGED FROM PREVIOUS MARKINGS. RIGHT LEG WITH LESS EDEMA, REDNESS THAN RIGHT. DAILY WEIGHT PERFORMED, 449 LBS TODAY. PO PRN MED FOR C/O PAIN IN ABDOMEN, LEGS FROM EDEMA. CPAP WHILE ASLEEP. ABLE TO TRANSFER TO [facility] X 1 ASSIST. NO RESULTS AVAILABLE YET FROM LAB, RECEIVED DOSES OF PO POTASSIUM FRIDAY AM FOR LOW RESULT.
[2018-08-25 06:30] LABS: HEMATOCRIT 34.9 % (37.0-47.0); HEMOGLOBIN 11.4 gm/dL (12.0-15.0)
[2018-08-25 06:32] LABS: MCH 29.2 pg (26.0-34.0); MCHC 32.7 g/dL (28.0-37.0); MCV 89.2 fL (80.0-100.0); RBC 3.91 mil/uL (4.20-5.00); RDW 15.3 % (10.5-14.5)
[2018-08-25 06:35] LABS: WBC 1.6 thou/uL (4.0-11.0)
[2018-08-25 06:42] LABS: ALBUMIN 1.9 g/dL (3.4-5.0); CALCIUM 8.2 mg/dL (8.5-10.1); CREATININE 0.8 mg/dL (0.6-1.0); POTASSIUM 3.4 mmol/L (3.5-5.1); TOTAL PROTEIN 5.7 g/dL (6.4-8.2)
[2018-08-25 07:45] VITALS: BP 146/62
[2018-08-25 08:47] VITALS: BP 146/62
--- NOTE | 2018-08-25 09:03 | H ---
[facility] [place] [address] HISTORY AND PHYSICAL Name: ASHLEY HERNANDEZ Room #: 516-1 ADM IN M.R.#: [id number] Admission: 08/13/18 Attend Phys: Elliot Fernandez MD Discharge: Date of : 65 Report #: [id number] THIS REPORT FOR: //name// CC: Elliot Fernandez [facility] physician/PCP DATE OF SERVICE: 08/14/2018 HISTORY AND PHYSICAL/POST ADMISSION PHYSICIAN EVALUATION HISTORY OF PRESENT ILLNESS: The patient is a 53-year-old morbidly obese female transferred from [place] with a lung mass. She was having problems with cough, dyspnea on exertion. She was noted to have a left upper lobe mass and probable liver mets with elevated liver function tests. She does have a history of morbid obesity as noted above. She underwent a liver biopsy with the biopsy confirming squamous cell lung CA. There also are noted to be possible mets to the brain. She started a 3-day chemotherapy treatment and it was noted that this would not be curative, but is hoping for remission. She has been started on these treatments and is to have 3 total with the last two including today and tomorrow as per my understanding. She has had a significant functional decline from her premorbid level and has now been admitted for acute in-hospital inpatient rehabilitation. PAST MEDICAL HISTORY: Morbid obesity, history of obstructive sleep apnea, diabetes mellitus type 2, COPD, chronic perianal fistula, hypothyroidism. ALLERGIES, CLAVULANIC ACID, AMOXICILLIN, SULFAMETHOXAZOLE, BACTRIM WITH TRIMETHOPRIM. MEDICATIONS: Please see the full medication listing. This includes vitamins, herbals, and supplements as per report. HABITS: Daily smoker, 1.5 packs per day for 40 years. No history of alcohol abuse. PAST SURGICAL HISTORY: Included couple of strokes in 2005 and 2006 and she has had prior anal fissure repair. FAMILY HISTORY: Includes cancer involving the bone with her mother. REVIEW OF SYSTEMS: Feels some discomfort of her overall abdominal area. She did have a bowel movement earlier this morning of medium size. Did not offer any current complaints of nausea or vomiting and there is no chest pain or shortness of breath. Complained of some swelling of both lower extremities, especially the left lower extremity. No specific neuro changes and no visual changes. [facility] [address] [place] [address] HISTORY AND PHYSICAL Name: ASHLEY HERNANDEZ Room #: 516-1 ADM IN [facility].#: [id number] Admission: 08/13/18 Attend Phys: Elliot Fernandez MD Discharge: Date of : 65 Report #: [id number] PHYSICAL EXAMINATION: A 53-year-old morbidly obese white female, in no obvious distress, 5 feet 6 inches. Last weight was 447 pounds. She had the BiPAP in place and removed it with getting up in the morning. She is alert, was able to follow basic 1-step commands. HEENT: Appeared appropriate. Facies were symmetric. CHEST: Sounded clear to auscultation. CARDIOVASCULAR: Regular rate and rhythm. ABDOMEN: She does have some ecchymosis over the liver biopsy site. She has a very large abdomen with a significant pannus, bowel sounds appeared positive. No obvious focal tenderness. GENITOURINARY AND RECTAL: Deferred. EXTREMITIES: She does have some swelling of the left lower extremity with 1-2+ left dorsal foot swelling compared to the right. There is no focal calf swelling, no palpable cord, negative Homans. Strength is probably a grade 4-/5. Functionally, she has been ambulating short distances with mod assist. ASSESSMENT: A 53-year-old white female with the following problem list: 1. Lung mass with metastases to liver and possible mets noted to the brain. 2. Status post liver biopsy 08/10/2017. 3. Bloating/constipation. 4. Left lower extremity greater than right lower extremity swelling. I have ordered venous Doppler studies of both lower extremities to rule out DVT. She has been on the SCDs. Holding mobility for now pending the Doppler study results. 5. Obstructive sleep apnea. 6. Morbid obesity. 7. Diabetes mellitus type 2. 8. Chronic perianal fistula. Gastroenterology has been involved. Referral to a colorectal surgeon as an outpatient, gastroenterology question if the patient was adequately understanding the gravity of other diagnoses. PLAN: The patient is admitted for acute in-hospital inpatient rehabilitation. From a postadmission physician evaluation perspective, there are no relevant changes since the preadmission screening. Please see the review of the prior and current medical and functional conditions and comorbidities. Please see the patient's previous and current functional status. As far as risk of complications, the patient has multiple medical comorbidities as noted above. Initial plan of care involves the interdisciplinary acute inpatient rehabilitation program with goal maximizing the patient's functional independence, so she can hopefully return back to her prior living situation. Measurable functional goals would be for the patient to become modified independent with transfers, mobility, ADLs, so that she can hopefully return back to the home setting. Speech therapy has also been asked to evaluate regarding cognition. The measurable functional goals would be for her to become modified independent at least at the walker level. Prognosis is reasonably good [facility] [address] [place] [address] HISTORY AND PHYSICAL Name: ASHLEY HERNANDEZ Room #: 516-1 ADM IN .R.#: [id number] Admission: 08/13/18 Attend Phys: Elliot Fernandez MD Discharge: Date of : 65 Report #: [id number] from a rehabilitation perspective with estimated length of stay probably 5-10 days. Potential barriers would include her multiple medical comorbidities and decreased functional status. DIAGNOSIS: Appropriate for an acute in-hospital inpatient rehabilitation stay. She meets the medical necessity criteria and we will have the multiple it support consultant physicians continue to follow. She does have the tolerance for therapies and has appropriate discharge goals back to the home setting. <ELECTRONICALLY SIGNED> By: Elliot Fernandez MD 08/25/1803 0 Elliot Fernandez MD /nt
[2018-08-25] MEDS ORDERED: ANUSOL-HC25 MG RECTAL (09:56)
[2018-08-25] MEDS ORDERED: NICOTINE TRANSD21 M1 TRANSDERM (09:56)
[2018-08-25] MEDS ORDERED: NOVOLOG100 UNIT/1 SUBQ (09:56)
[2018-08-25] MEDS ORDERED: REMERON15 MG PO (09:56)
[2018-08-25] MEDS ORDERED: IPRAT-ALBUT 0.5-3 ML INH (09:56)
[2018-08-25] MEDS ORDERED: LIDOPATCH1 EACH TRANSDERM (09:56)
[2018-08-25] MEDS ORDERED: DOXYCYCLINE HYC50 MG PO (09:56)
[2018-08-25] MEDS ORDERED: PROBIOTIC1 EAC1 PO (09:56)
[2018-08-25] MEDS ORDERED: POTASSIUM20 PO (09:56)
[2018-08-25] MEDS ORDERED: ALDACTONE50 MG PO (09:56)
[2018-08-25] MEDS ORDERED: LASIX 40 MG TAB40 M2 PO (09:56)
[2018-08-25] MEDS ORDERED: OXYCODONE HCL 55 MG PO (09:57)
--- NOTE | 2018-08-25 10:46 | NUR ---
ASSUMED CARE AT 0700. WBC 1.6 TODAY. ONCOLOGIST AND JOSÉ MIGUEL MENSAH AWARE. NEUTROPENIA PRECAUTION NOTE ON THE DOOR. INSTRUCTED ABOUT WASHING HANDS. PATIENT IS ALERT AND ORIENTED X4. REPORTS SLEPT FINE. PROFESSOR OF PHYSICAL EDUCATION ARE EQUAL. LUNGS ARE CLEAR. ABD IS SOFT WITH BSX4. COLACE CONTINUE ORDERED R/T POSSIBLE SBO. LEFT LEG HAS 2+ EDEMA AND CELLULITIS IN THE LEG. CONTINUE TO BE ON DOXYCLINE WITHOUT ADVERSE REACTION NOTED. PATIENT IS UP TO THE BATHROOM TO VOID AND HAD BM. PATIENT WAS CLEANED UP AND BARRIER CREAM WAS APPLIED. FALL AND SAFETY PROTOCOLS IN PLACE. C/O PAIN IN HER BACK. LIDODERM PATCHES APPLIED ON LOWER BACKS. PRN PAIN MEDS FOR PAIN. PAIN IS TOLERATE NOW. REDNESS ON GROINS INTERDRY APPLIED. SHE SAID IT MAKES SHE FEELS BETTER. PATIENT UP IN CHAIR WITH LEGS ELEVATED. WILL CONTINUE TO MONITOR. PT WILL BE DISCHARGE TODAY. CM WILL CONTINUE TO FOLLOW UP.
--- NOTE | 2018-08-25 11:25 | NUR ---
per liaison with [facility], approved for snf. pt will go obs, outpt chemo and follow up test aka pet scan. van set up for 1500, pt and pt mom ronny notified of dc time. bedside nurse to call report and chart copy requested. (appointment on , then 09/02 and on 09/06.) dcp [facility]
--- NOTE | 2018-08-25 13:53 | NUR ---
PT. DISCHARGING TODAY TO [facility]. FAXED DC ORDERS/SUMMARY TO FACILITY AND SPOKE WITH CARLA IN ADM. SHE RECEIVED ORDERS. TRANSPORTATION ARRANGED VIA [employer] VAN AT 1500. FAMILY NOTIFIED PER RN/SW AND UNIT NOTIFIED OF TIME OF TRANSPORT AND CHART COPY PER US. RN TO CALL REPORT TO .
--- NOTE | 2018-08-27 10:03 | NUR ---
davon received phone call from pt mom ronny, stated "she missed her appointment with [facility] today because facility told her i had to take her and her lab work as well. she did not get equip until 6pm the day she left hospital because not have it. she will go to [facility] tomorrow but need to speak with someone about lab work"/ronny. let ronny know would call facility and have liaison reach out to her." thank you"/ronny. davon passed on information to facility liaison to call ronny.
== END 2018-08-25 14:23 | DRG 194 ==
PROVIDERS: Hospitalist; Internal Medicine Hematology & Oncology; Nurse Practitioner; Nurse Practitioner Family; ADMIT Physical Medicine & Rehabilitation
DX: J18.9 Pneumonia, unspecified organism (principal); C78.7 Secondary malignant neoplasm of liver and intrahepatic bile duct; C34.90 Malignant neoplasm of unspecified part of unspecified bronchus or lung; K56.7 Ileus, unspecified; K62.5 Hemorrhage of anus and rectum; Z68.44 Body mass index [BMI] 60.0-69.9, adult; R53.81 Other malaise; E66.01 Morbid (severe) obesity due to excess calories; G47.33 Obstructive sleep apnea (adult) (pediatric); E11.9 Type 2 diabetes mellitus without complications; K60.3 Anal fistula; K59.00 Constipation, unspecified; E87.5 Hyperkalemia; F43.23 Adjustment disorder with mixed anxiety and depressed mood; R13.10 Dysphagia, unspecified; Z86.73 Personal history of transient ischemic attack (TIA), and cerebral infarction without residual deficits; Z72.0 Tobacco use; Z88.1 Allergy status to other antibiotic agents; Z88.2 Allergy status to sulfonamides; Z88.8 Allergy status to other drugs, medicaments and biological substances; Z80.8 Family history of malignant neoplasm of other organs or systems
CPT/HCPCS: 10112